=== PATIENT | male | born 1990 | race Caucasian/White ===

== ENCOUNTER 2017-01-02 16:10 | Inpatient (IN) | payer MEDICARE, MEDICAID ==
[~2017-01-02] VITALS: Ht 175.3 cm; Wt 66.6 kg
[2017-01-02] VITALS (7 sets, daily range): BP systolic 96; BP diastolic 57; PULSE 93–106; RESP 18; TEMP 101.7; O2SAT 95–100
[2017-01-02] MEDS ORDERED: IOHEXOL 350 MG/ML 10 ML VIAL (for RAD DIAG) IVCONTRAST ONE (16:11)
[2017-01-02] MEDS ORDERED: PROPOFOL 1000 MG/100 ML INJ 100 ML ONE ×2 (16:17→17:43)
[2017-01-02 16:35] LABS: AUTOMATED NEUTROPHIL # 8.1 TH/MM3 (1.8-7.7); BASOPHIL # 0.1 TH/MM3 (0-0.2); BASOPHIL % 0.8 % (0.0-2.0); EOSINOPHIL # 0.3 TH/MM3 (0-0.4); EOSINOPHIL % 1.7 % (0.0-4.0); HEMATOCRIT 46.2 % (39.0-51.0); LYMPH % 44.2 % (9.0-44.0); MEAN CELL VOLUME 94.3 FL (80.0-100.0); MEAN CORPUSCULAR HEMOGLOBIN 31.5 PG (27.0-34.0); MEAN CORPUSCULAR HGB CONC 33.4 % (32.0-36.0); MONO % 8.2 % (0.0-8.0); NEUT % 45.1 % (16.0-70.0); PLATELET COUNT 257 TH/MM3 (150-450); RED CELL DISTRIBUTION WIDTH 13.4 % (11.6-17.2)
[2017-01-02] MEDS: SODIUM CHLOR 0.9% 1000 ML INJ 1,000 ML IV SCH (16:35)
[2017-01-02 16:37] LABS: HEMO FLAGS AUTO DIFF
[2017-01-02 16:41] LABS: I-STAT POTASSIUM 4.9 MMOL/L (3.5-4.9)
--- NOTE | 2017-01-02 16:41 | RADRPT ---
EXAM DATE/TIME: 01/02/2017 16:02 [facility] COMPARISON: No previous studies available for comparison. INDICATIONS : Trauma alert. Post intubation. MEDICAL HISTORY : None. SURGICAL HISTORY : None. ENCOUNTER: Initial ACUITY: 1 day PAIN SCORE: Non-responsive. LOCATION: chest FINDINGS: A single view of the chest demonstrates bilateral airspace disease. No associated effusions heart siz e is borderline prominent. Endotracheal tube is identified with the tip at the clavicular heads. Osse ous structures are intact. CONCLUSION: 1. Bilateral airspace disease. 2. Endotracheal tube with the tip at the clavicular heads. 3. Heart size is prominent Adriel Trevino MD on January 02, 2017 at 16:38 Board Certified Radiologist. This report was verified electronically.
[2017-01-02] MEDS ORDERED: ONDANSETRON HCL 4 MG/2 ML VIAL IV PRN (16:45)
[2017-01-02] MEDS ORDERED: PROPOFOL 1000 MG/100 ML INJ 100 ML IV PRN ×2 (16:45→19:00)
[2017-01-02] MEDS ORDERED: NALOXONE HCL 0.4 MG/ML AMP IV PUSH PRN (16:45)
[2017-01-02] MEDS ORDERED: SODIUM CHLORIDE 0.9% FLUSH 10 ML FLUSH IV FLUSH PRN (16:45)
[2017-01-02] MEDS ORDERED: Post-op Orders (for Pharmacy) MISC XX ONE (16:45)
[2017-01-02] MEDS ORDERED: ROCURONIUM INJ 50 MG/5 ML VIAL ONE (16:52)
[2017-01-02 17:01] LABS: APTT (PATIENT) 23.3 SEC (24.3-30.1); PROTHROMBIN TIME - PATIENT 11.6 SEC (9.8-11.6)
--- NOTE | 2017-01-02 17:13 | RADRPT ---
EXAM DATE/TIME: 01/02/2017 16:36 [facility] COMPARISON: No previous studies available for comparison. INDICATIONS : Trauma,Hanging RADIATION DOSE: 69.15 CTDIvol (mGy) MEDICAL HISTORY : Unable to obtain SURGICAL HISTORY : Unable to obtain ENCOUNTER: Initial ACUITY: 1 day PAIN SCALE: Non-responsive LOCATION: cranial TECHNIQUE: Multiple contiguous axial images were obtained of the head. Using automated exposure control and adj ustment of the mA and/or kV according to patient size, radiation dose was kept as low as reasonably a chievable to obtain optimal diagnostic quality images. DICOM format image data is available electro nically for review and comparison. FINDINGS: CEREBRUM: The ventricles are normal for age. No evidence of midline shift, mass lesion, hemorrhage or acute in farction. Possible area of diminished attenuation in the left anterior coronal radiata. No extra-axi al fluid collections are seen. POSTERIOR FOSSA: The cerebellum and brainstem are intact. The 4th ventricle is midline. The cerebellopontine angle i s unremarkable. EXTRACRANIAL: The visualized portion of the orbits is intact. SKULL: The calvaria is intact. No evidence of skull fracture. CONCLUSION: 1. Possible area of diminished attenuation in the left anterior mcclellan radiata characteristic of foca l white matter disease. 2. Otherwise, nothing acute. No fracture. Adriel Trevino MD on January 02, 2017 at 17:07 Board Certified Radiologist. This report was verified electronically.
--- NOTE | 2017-01-02 17:23 | RADRPT ---
EXAM DATE/TIME: 01/02/2017 16:48 [facility] COMPARISON: No previous studies available for comparison. INDICATIONS : Trauma,hanging IV CONTRAST: 80 cc Omnipaque 350 (iohexol) IV ; Cumulative dose for multiple exams. RADIATION DOSE: 6.69 CTDIvol (mGy) MEDICAL HISTORY : Unable to obtain SURGICAL HISTORY : Unable to obtain ENCOUNTER: Initial ACUITY: 1 day PAIN SCALE: Non-responsive LOCATION: chest TECHNIQUE: Volumetric scanning of the chest was performed. Using automated exposure control and adjustment of t he mA and/or kV according to patient size, radiation dose was kept as low as reasonably achievable to obtain optimal diagnostic quality images. DICOM format image data is available electronically for review and comparison. Follow-up recommendations for detected pulmonary nodules are based at a minimum on nodule size and pa tient risk factors according to Fleischner Society Guidelines. FINDINGS: LUNGS: Bilateral airspace disease predominantly nodular infiltrates. Right basilar atelectasis. PLEURA: There is no pleural thickening or pleural effusion. MEDIASTINUM: The heart and great vessels demonstrate no acute abnormality. There is no mediastinal or hilar lymph adenopathy. AXILLAE: Within normal limits. No lymphadenopathy. SKELETAL: Probable old healed fracture deformities in the posterior right mid and lower chest MISCELLANEOUS: The visualized upper abdominal organs demonstrate no acute abnormality. CONCLUSION: 1. Bilateral airspace disease with innumerable nodular infiltrates predominantly in a right upper lob e bilateral perihilar and lower lobe distribution. 2. Right basilar atelectasis. 3. Old posterior rib fractures in the right hemithorax Adriel Trevino MD on January 02, 2017 at 17:11 Board Certified Radiologist. This report was verified electronically.
--- NOTE | 2017-01-02 17:37 | RADRPT ---
EXAM DATE/TIME: 01/02/2017 16:44 [facility] COMPARISON: No previous studies available for comparison. INDICATIONS : Trauma Alert- neck pain due to hanging. RADIATION DOSE: ; Reconstructed from previous dataset, no dose MEDICAL HISTORY : Non-responsive. SURGICAL HISTORY : Non-responsive. ENCOUNTER: Initial ACUITY: 1 day PAIN SCALE: Non-responsive LOCATION: Bilateral neck region. TECHNIQUE: Volumetric scanning of the cervical spine was performed. Multiplanar reconstructions in the sagittal, coronal and oblique axial planes were performed. Using automated exposure control and adjustment o f the mA and/or kV according to patient size, radiation dose was kept as low as reasonably achievable to obtain optimal diagnostic quality images. DICOM format image data is available electronically f or review and comparison. FINDINGS: VERTEBRAE: Normal vertebral body height. ALIGNMENT: No evidence of subluxation. C2-C3: The bony spinal canal is normal in size. No evidence of disc bulge or herniation. The neural forami na are bilaterally patent. C3-C4: The bony spinal canal is normal in size. No evidence of disc bulge or herniation. The neural forami na are bilaterally patent. C4-C5: The bony spinal canal is normal in size. No evidence of disc bulge or herniation. The neural forami na are bilaterally patent. C5-C6: The bony spinal canal is normal in size. No evidence of disc bulge or herniation. The neural forami na are bilaterally patent. C6-C7: The bony spinal canal is normal in size. No evidence of disc bulge or herniation. The neural forami na are bilaterally patent. C7-T1: The bony spinal canal is normal in size. No evidence of disc bulge or herniation. The neural forami na are bilaterally patent. CONCLUSION: No fracture. Adriel Trevino MD on January 02, 2017 at 17:34 Board Certified Radiologist. This report was verified electronically.
--- NOTE | 2017-01-02 17:47 | RADRPT ---
EXAM DATE/TIME: 01/02/2017 16:44 [facility] COMPARISON: CT CERVICAL SPINE W/O CONTRAST, January 02, 2017, 16:44. INDICATIONS : Trauma hanging IV CONTRAST: 80 cc Omnipaque 350 (iohexol) IV RADIATION DOSE: 17.06 CTDIvol (mGy) MEDICAL HISTORY : Unable to obtain SURGICAL HISTORY : Unable to obtain ENCOUNTER: Initial ACUITY: 1 day PAIN SCALE: Non-responsive LOCATION: CTA NECK Elevated flow velocities and ICA/CCA ratios have been found to correlate with increased degrees of vessel stenosis, calculated as percentage of diameter relative to a normal segment of distal ICA/CCA. TECHNIQUE: Volumetric scanning was performed using a multirow detector CT scanner. The data was post processed with a variety of visualization algorithms including full-volume maximum intensity projection, multip lanar sliding thin-slab reformation, curved-planar reformation, and surface-rendering techniques. Us ing automated exposure control and adjustment of the mA and/or kV according to patient size, radiatio n dose was kept as low as reasonably achievable to obtain optimal diagnostic quality images. DICOM f ormat image data is available electronically for review and comparison. FINDINGS: AORTIC ARCH: There is a three-vessel origin of the great vessels from the aorta. No evidence of ostial narrowing. RIGHT CAROTID: The common carotid artery is intact. The carotid bulb has a normal configuration without ulceration o r narrowing. The internal carotid artery lumen is smooth without stenosis. The external carotid shiv ry is intact. LEFT CAROTID: The common carotid artery is intact. The carotid bulb has a normal configuration without ulceration or narrowing. The internal carotid artery lumen is smooth without stenosis. The external carotid ar desmond is intact. VERTEBRALS: The left vertebral is small.. CONCLUSION: Negative for dissection. Fernando Nicholas MD FACR on January 02, 2017 at 17:44 Board Certified Radiologist. This report was verified electronically.
--- NOTE | 2017-01-02 17:59 | PD ---
HPI Chief Complaint: hanging Time Seen by Provider: 17:01 Travel History International Travel<30 days: No Contact w/Intl Traveler<30days: No History of Present Illness HPI Is a 26-year-old presents emergency department after reportedly hanging. By EMS report, patient was found by his mom hanging from a ceiling fan with the dog leash. Reportedly family had to cut him down. When he cut down he fell and hit his head on the back of the table. He's been combative and agitated with EMS. History Past Medical History Narrative Medical Unknown Social History Tobacco Use: No (unknown) Allergies-Medications (Allergen,Severity, Reaction): Coded Allergies: No Known Allergies (Unverified , 01/02/17) Review of Systems Except as stated in HPI: all other systems reviewed are Neg Physical Exam Narrative GENERAL: Ill-appearing 29-year-old male, diaphoretic, cyanotic, agitated. SKIN: Clammy and cyanotic. HEAD: Normocephalic. No evidence of trauma. EYES: Pupils equal and round. No scleral icterus. No injection or drainage. ENT: No nasal bleeding or discharge. Mucous membranes pink and moist. NECK: Trachea midline. No definite obvious ligature thrasher or bruising. No crepitus. CARDIOVASCULAR: Regular rate and rhythm. No murmur appreciated. RESPIRATORY: No accessory muscle use. Clear to auscultation. Breath sounds equal bilaterally. GASTROINTESTINAL: Abdomen soft, non-tender, nondistended. Hepatic and splenic margins not palpable. MUSCULOSKELETAL: No obvious deformities. No clubbing. No cyanosis. No edema. NEUROLOGICAL: Agitated and obtunded. Generalized shaking and withdrawing from painful stimuli. Possible extensor posturing. No verbal. Data Data Last Documented VS Vital Signs Date Time Temp Pulse Resp B/P (MAP) Pulse Ox O2 Delivery O2 Flow Rate FiO2 01/02/17 17:15 99 100 Orders Orders Propofol 1000 Mg/100 Ml Inj (Diprivan 10 (01/02/17 16:17) I-Stat Profile (01/02/17 16:16) I-Stat Creatinine (01/02/17 16:16) Complete Blood Count With Diff (01/02/17 16:16) Prothrombin Time / Inr (Pt) (01/02/17 16:16) Act Partial Throm Time (Ptt) (01/02/17 16:16) Type And Screen (01/02/17 16:16) Chest, Single Ap (01/02/17 16:16) Ct Brain W/O Iv Contrast(Rout) (01/02/17 16:16) Ct Thorax/ Chest W Iv Contrast (01/02/17 16:16) Iv Access Insert/Monitor (01/02/17 16:16) Ecg Monitoring (01/02/17 16:16) Oximetry (01/02/17 16:16) Oxygen Administration (01/02/17 16:16) Cta Neck W Iv Contrast W 3d (01/02/17 ) Cta Brain W Iv Contrast W 3d (01/02/17 ) Admit To Inpatient (01/02/17 ) Code Status (01/02/17 16:35) Vital Signs (Adult) Q4H (01/02/17 16:35) Activity Bed Rest (01/02/17 16:35) ^ Orogastric Tube (01/02/17 16:35) Diet Npo (01/02/17 Dinner) Sodium Chlor 0.9% 1000 Ml Inj (Ns 1000 M (01/02/17 16:35) Sodium Chloride 0.9% Flush (Ns Flush) (01/02/17 16:45) Sodium Chloride 0.9% Flush (Ns Flush) (01/02/17 21:00) Ondansetron Inj (Zofran Inj) (01/02/17 16:45) Pantoprazole Inj (Protonix Inj) (01/02/17 16:45) Basic Metabolic Panel (Bmp) (01/03/17 06:00) Hepatic Functional Panel (01/03/17 06:00) Complete Blood Count With Diff (01/03/17 06:00) Consult Kindergarten Teacher Assistant (01/02/17 ) Post-Op Orders (For Pharmacy) (Post-Op O (01/02/17 16:45) Naloxone Inj (Narcan Inj) (01/02/17 16:45) Enoxaparin Inj (Lovenox Inj) (01/02/17 16:45) Scd Bilateral/Knee High EVELYN.QSHIFT (01/02/17 16:35) Inpatient Certification (01/02/17 ) Propofol 1000 Mg/100 Ml Inj (Diprivan 10 (01/02/17 16:45) Neurological Rass Scale Q30MX2,Q2HX4,Q4H (01/02/17 16:35) Eeg Study (01/02/17 ) Echo 2d Comp With Doppler (01/02/17 ) Electrocardiogram (01/02/17 ) Rocuronium Inj (Zemuron Inj) (01/02/17 16:52) (Hub Use Only)Inp Phy Cons/Ref (01/02/17 ) Ct Cerv Spine W/O Contrast (01/02/17 17:07) Iohexol 350 Inj (Omnipaque 350 Inj) (01/02/17 16:11) Admit Order (Ed Use Only) (01/02/17 ) Labs Laboratory Tests Test 01/02/17 16:12 White Blood Count 18.0 TH/MM3 Red Blood Count 4.90 MIL/MM3 Hemoglobin 15.4 GM/DL Bedside Hemoglobin 16.0 G/DL Hematocrit 46.2 % Bedside Hematocrit 47.0 % Mean Corpuscular Volume 94.3 FL Mean Corpuscular Hemoglobin 31.5 PG Mean Corpuscular Hemoglobin Concent 33.4 % Red Cell Distribution Width 13.4 % Platelet Count 257 TH/MM3 Mean Platelet Volume 10.1 FL Neutrophils (%) (Auto) 45.1 % Lymphocytes (%) (Auto) 44.2 % Monocytes (%) (Auto) 8.2 % Eosinophils (%) (Auto) 1.7 % Basophils (%) (Auto) 0.8 % Neutrophils # (Auto) 8.1 TH/MM3 Lymphocytes # (Auto) 8.0 TH/MM3 Monocytes # (Auto) 1.5 TH/MM3 Eosinophils # (Auto) 0.3 TH/MM3 Basophils # (Auto) 0.1 TH/MM3 CBC Comment AUTO DIFF Prothrombin Time 11.6 SEC Prothromb Time International Ratio 1.0 RATIO Activated Partial Thromboplast Time 23.3 SEC Bedside Sodium 143 MMOL/L Bedside Potassium 4.9 MMOL/L Bedside Chloride 104 MMOL/L Bedside Blood Urea Nitrogen 15 MG/DL Bedside Creatinine 1.4 MG/DL Bedside Glucose 173 MG/DL [facility] Medical Decision Making Medical Screen Exam Complete: Yes Emergency Medical Condition: Yes Differential Diagnosis Head injury, hypoxia, neck injury, other Narrative Course Medical decision making This is a young adult male, status post attempted hanging, appears critically ill and agitated. He was intubated for agitation, and hypoxia. It was difficult to obtain any vital signs prior to intubation because of his violent thrashing. Patient was admitted to the ICU to the trauma service. Chest x-ray shows what appears to be pulmonary edema. Procedures Procedure Narrative INTUBATION: The patient was put in optimal position for the procedure. Rapid sequence intubation was initiated by me using 20 milligrams of etomidate IV and 100 milligrams of succinylcholine IV. The patient was intubated with a 8.0 cuffed endotracheal tube. Tube placement was confirmed by visualization of the tube and balloon passing through the cords, capnometry and subsequent chest x- ray. Breath sounds were equal and well aerated bilaterally postintubation. No breath sounds over stomach. Patient tolerated procedure well. Diagnosis Primary Impression: Asphyxiation by hanging Admitting Information Admitting Physician Requests: Admit Usman Duke MD Jan 02, 2017 17:59
[2017-01-02 18:04] LABS: BLOOD GAS BASE EXCESS -3.1 mmol/L (-2-2); BLOOD GAS CARBOXYHEMOGLOBIN 0.8 % (0-4); BLOOD GAS HCO3 22 mmol/L (22-26); BLOOD GAS METHEMOGLOBIN 1.1 % (0-2); BLOOD GAS O2 HGB SATURATION 98 % (90-100); BLOOD GAS OXYGEN CONTENT 20.9 Vol % (12.0-20.0); BLOOD GAS PCO2 44 mmHg (38-42); BLOOD GAS PO2 342 mmHg (61-120); BLOOD GAS TOTAL HGB 14.6 G/DL (12.0-16.0); TEMP CORR TO 98.6
[2017-01-02 18:05] LABS: CRITICAL VALUE NO; DRAW SITE RT RADIAL; FIO2 100 %; NUMBER OF ARTERIAL PUNCTURES 1; OXYGEN DEVICE VENTILATOR; STAT NO; ULNAR PULSE PRESENT
[2017-01-02 18:08] LABS: BASOPHILS 1 % (0-2); EOSINOPHILS 2 % (0-4); MYELOCYTES 2 % (0-0); NEUTROPHIL # MANUAL DIFF 8.1 TH/MM3 (1.8-7.7); POLYS (SEG NEUTROPHILS) 43 % (16-70); WBC DIFF SAMPLE 100
[2017-01-02 18:09] LABS: PLATELET ESTIMATE SMEAR NORMAL (NORMAL); PLATELET MORPHOLOGY CLUMPED (NORMAL)
[2017-01-02 18:10] LABS: SCAN/DIFF FINAL DIFF MANUAL
--- NOTE | 2017-01-02 18:15 | MH ---
cc: GINGER MONTERO DATE OF ADMISSION: 01/02/2017 ADMITTING DIAGNOSIS: Attempted hanging suicide, loss of consciousness, brain hypoxia, pulmonary edema and respiratory failure. HISTORY OF PRESENT DISEASE: This 21-vlad year-old male apparently tried to hang himself at home on a dog leash which he tied to the ceiling fan. Of course the whole thing came crashing down so he never hung himself essentially, but certainly probably had long enough hypoxia to be unconscious. He was brought to our institution as Priority One Trauma Alert. On arrival the patient is on a spinal board with a C-collar in place. He is thrashing around, all four extremities, moving his head left and right, not answering questions and mumbling. PAST MEDICAL HISTORY, PAST SURGICAL HISTORY: Patient was apparently admitted in the past in [place] and he is known to be bipolar not taking medication and being noncompliant. MEDICATIONS: Unknown. ALLERGIES: Unknown. PHYSICAL EXAMINATION: Physical examination reveals 21-vlad year-old male, normocephalic. No trauma to the head. Pupils equally reactive. Extraocular muscles cannot be tested but he is darting back and forth with his eyes. There is some swelling noted in the occiput of the head but no actual laceration. NECK: Neck is examined by removing the portion of the C-collar. I do not see any indentation or bruising from the alleged dog leash that he was hanging on, so the thing must have come down before it could make any dents. CHEST: Bilateral breath sounds. No signs of trauma to the chest. HEART: Regular rhythm. The patient is hemodynamically stable. neck is ABDOMEN: Soft, hypoactive bowel sounds. No signs of trauma to the abdomen. EXTREMITIES: Patient has bilateral femoral, popliteal, dorsalis pedis, posterior tibial pulses. Bilateral brachial, radial, ulnar pulses. No signs of trauma to the extremities. Patient is log-rolled to the back. No signs of trauma to the back. NEUROLOGIC: Neha Coma Scale is about 5. The patient is moving all four extremities, he does not lateralize. No pathologic reflexes. PROTOCOL RESUSCITATION The patient is evaluated, primary/secondary survey, resuscitation, definitive care is carried out. The patient is immediately intubated, ventilated, placed on propofol to be able to do any studies and to allow the patient to keep his upper airway. The patient is then taken to ICU for further care. Critical care time: 45 minutes. Ginger PULLIAM /5:28 PM /5:56 PM PANDA
--- NOTE | 2017-01-02 18:56 | PD.CONS ---
[facility] Service Critical Care Medicine Consult Requested By Dr. Maya Reason for Consult Critical care management following hanging and acute respiratory failure Primary Care Physician Unknown History of Present Illness 26-year-old male with past medical history of depression and prior suicide attempt who presented to [facility] emergency department as a trauma alert following hanging. GCS was 7 prehospital. Blood glucose was 121. He received Ativan 2 mg IV and 900 ML's of NS prehospital. GCS was reportedly 5 upon arrival. He was intubated by Dr. Duke after receiving etomidate 20 mg IV and succinylcholine 100 mg IV. He is on a propofol drip. Workup has included: CT brain - report states possible decreased attenuation in the left anterior mcclellan radiata characteristic of focal white matter disease. CT C-spine -no fracture CTA neck - negative for dissection Chest x-ray - satisfactory endotracheal tube position. Bilateral airspace disease CT chest - right basilar atelectasis. Old posterior rib fracture Review of systems cannot be obtained as patient has altered mental status and is intubated. Family was here earlier however unfortunately did not provide any contact information so I am also unable to obtain past medical history/past surgical history/family history/ social history/medications. Past Family Social History Allergies: Coded Allergies: No Known Allergies (Unverified , 01/02/17) Past Medical History History of prior right ribs fractures Depression Prior suicide attempt (family provided this history to the bedside RN) Past Surgical History Has scar consistent with prior abdominal surgery ?exploratory laparotomy Reported Medications Unable to obtain secondary to patient's clinical condition. Family did not provide contact information and they have left the hospital Family History Unable to obtain secondary to patient's clinical condition. Family did not provide contact information and they have left the hospital Social History Unable to obtain secondary to patient's clinical condition. Family did not provide contact information and they have left the hospital Physical Exam Vital Signs Vital Signs Date Time Temp Pulse Resp B/P (MAP) Pulse Ox O2 Delivery O2 Flow Rate FiO2 01/02/17 18:00 106 01/02/17 17:15 99 100 01/02/17 17:05 100 01/02/17 16:40 100 100 Physical Exam GENERAL: Well-nourished, well-developed patient who is intubated. Restless on propofol, moving about bed. SKIN: Warm and dry. HEAD: Atraumatic. Normocephalic. EYES: Pupils equal and round 6mm and reactive to 4mm bilaterally. No scleral icterus. No injection or drainage. ENT: No nasal bleeding or discharge. Mucous membranes pink and moist. NECK: Trachea midline. No JVD. Ligature madhu left neck. CARDIOVASCULAR: tachycardic, regular, sinus tach on monitor. No murmurs rubs or gallops. RESPIRATORY: Clear to auscultation. Breath sounds equal bilaterally. GASTROINTESTINAL: Abdomen soft, non-tender, nondistended. Midline vertical incision scar abdomen. MUSCULOSKELETAL: Extremities without clubbing, cyanosis, or edema. No obvious deformities. NEUROLOGICAL: Eyes open spontaneously. Moves all extremities spontaneously and localizes. Does not follow commands. Laboratory Laboratory Tests Test 01/02/17 16:12 01/02/17 17:55 White Blood Count 18.0 Red Blood Count 4.90 Hemoglobin 15.4 Bedside Hemoglobin 16.0 Hematocrit 46.2 Bedside Hematocrit 47.0 Mean Corpuscular Volume 94.3 Mean Corpuscular Hemoglobin 31.5 Mean Corpuscular Hemoglobin Concent 33.4 Red Cell Distribution Width 13.4 Platelet Count 257 Mean Platelet Volume 10.1 Neutrophils (%) (Auto) 45.1 Lymphocytes (%) (Auto) 44.2 Monocytes (%) (Auto) 8.2 Eosinophils (%) (Auto) 1.7 Basophils (%) (Auto) 0.8 Neutrophils # (Auto) 8.1 Lymphocytes # (Auto) 8.0 Monocytes # (Auto) 1.5 Eosinophils # (Auto) 0.3 Basophils # (Auto) 0.1 CBC Comment AUTO DIFF Differential Total Cells Counted 100 Neutrophils % (Manual) 43 Lymphocytes % 47 Monocytes % 5 Eosinophils % 2 Basophils % 1 Neutrophils # (Manual) 8.1 Myelocytes 2 Differential Comment FINAL DIFF MANUAL Atypical Lymphocytes Platelet Estimate NORMAL Platelet Morphology Comment CLUMPED Prothrombin Time 11.6 Prothromb Time International Ratio 1.0 Activated Partial Thromboplast Time 23.3 Bedside Sodium 143 Bedside Potassium 4.9 Bedside Chloride 104 Bedside Blood Urea Nitrogen 15 Bedside Creatinine 1.4 Bedside Glucose 173 Blood Gas Puncture Site RT RADIAL Blood Gas Patient Temperature 98.6 Blood Gas HCO3 22 Blood Gas Base Excess -3.1 Blood Gas Oxygen Saturation 98 Arterial Blood pH 7.32 Arterial Blood Partial Pressure CO2 44 Arterial Blood Partial Pressure O2 342 Arterial Blood Oxygen Content 20.9 Arterial Blood Carboxyhemoglobin 0.8 Arterial Blood Methemoglobin 1.1 Blood Gas Hemoglobin 14.6 Oxygen Delivery Device VENTILATOR Blood Gas Ventilator Setting SEE COMMENT Blood Gas Inspired Oxygen 100 Result Diagram: 01/02/17 1612 Assessment and Plan Problem List: (1) Hanging ICD Code: T71.164A - Asphyxiation due to hanging, undetermined, initial encounter (2) Suicidal ideation ICD Code: R45.851 - Suicidal ideations Status: Chronic (3) Depression ICD Code: F32.9 - Major depressive disorder, single episode, unspecified Status: Chronic (4) Acute respiratory failure ICD Code: J96.00 - Acute respiratory failure, unspecified whether with hypoxia or hypercapnia (5) Pulmonary edema, noncardiac ICD Code: J81.1 - Chronic pulmonary edema Status: Acute (6) Leukocytosis ICD Code: D72.829 - Elevated white blood cell count, unspecified (7) Hyperglycemia ICD Code: R73.9 - Hyperglycemia, unspecified Status: Acute Assessment and Plan NEURO: Hanging Suicidal tendencies Depression CT brain - report states possible decreased attenuation in the left anterior mcclellan radiata characteristic of focal white matter disease. CT C-spine -no fracture CTA neck - negative for dissection Propofol for sedation. Patient is localizing. Agitated on propofol so fentanyl added overnight for analgosedation. Patient will need to be placed under Agosto act when he is extubated and psych consult when he is able to communicate appropriately. RESP: Acute respiratory failure Old right posterior rib fracture On mechanical ventilation. Ventilator bundle. CPAP trial in am. Bilateral pulmonary opacities Likely negative pressure pulmonary edema that will be self-limiting. Repeat CXR in am. CV: Sinus tachycardia Secondary to agitation and pain. Improved with fentanyl GI: Place OG tube to low intermittent wall suction. Will initiate enteral feeds if not able to extubate tomorrow. FEN/RENAL: Morales in place. Monitor intake and output. Monitor electrolytes. Replace electrolytes as indicated per ICU electrolyte replacement protocol. ID: Leukocytosis Bilateral pulmonary opacities may be secondary to negative pressure pulmonary edema. May have component of aspiration pneumonitis. Will hold off on abx at this time and monitor for signs and symptoms of infection, HEME: No acute hematologic issues. CBC in a.m. ENDO: Acute hyperglycemia, likely stress-induced secondary to trauma Monitor bedside glucose and initiate low-dose insulin sliding scale every 6 hours as indicated. PROPH: Lovenox 40 mg subcutaneous daily for DVT prophylaxis. Protonix 40 mg IV daily for stress ulcer prophylaxis. ACCESS: Peripheral IV providing adequate access at this time Level 3 Consult Problem Qualifiers (1) Hanging: Qualified Codes: T71.164A - Asphyxiation due to hanging, undetermined, initial encounter Anamaria Garcia MD Jan 02, 2017 18:56
[2017-01-02] MEDS ORDERED: fentaNYL DRIP 250 ML IV PRN (19:00)
--- NOTE | 2017-01-02 19:13 | RADRPT ---
EXAM DATE/TIME: 01/02/2017 16:44 [facility] COMPARISON: No previous studies available for comparison. INDICATIONS : Trauma hanging. IV CONTRAST: 80 cc Omnipaque 350 (iohexol) IV ; Cumulative dose for multiple exams. RADIATION DOSE: 17.06 CTDIvol (mGy) MEDICAL HISTORY : Unable to obtain SURGICAL HISTORY : Unable to obtain ENCOUNTER: Initial ACUITY: 1 day PAIN SCALE: Non-responsive LOCATION: CTA HEAD TECHNIQUE: Volumetric scanning was performed using a multi-row detector CT scanner. The data was post processed with a variety of visualization algorithms including full volume maximum intensity projection, multi -planar sliding thin slab reformation, curved planar reformation, and surface rendering techniques. Using automated exposure control and adjustment of the mA and/or kV according to patient size, radiat ion dose was kept as low as reasonably achievable to obtain optimal diagnostic quality images. DICO M format image data is available electronically for review and comparison. FINDINGS: There is excellent visualization of the major intracranial arteries out to the second-order branch ve ssels. There is no evidence for aneurysm, vessel truncation or stenosis, and no evidence for vascula r malformation. There is a patent left posterior communicating artery. CONCLUSION: 1. No significant stenosis, occlusion or aneurysm. 2. Patent left posterior communicating artery. Alexi Bergman MD on January 02, 2017 at 19:08 Board Certified Radiologist. This report was verified electronically.
[2017-01-02] MEDS ORDERED: DEXTROSE 50% IN WATER 50 ML VIAL(D50) IV PUSH PRN (19:30)
[2017-01-02] MEDS ORDERED: fentaNYL 2,500 MCG/NS 250 ML IV PRN (19:30)
[2017-01-02] MEDS ORDERED: GLUCAGON 1 MG/ML VIAL OTHER PRN (19:30)
[2017-01-02] MEDS: PROPOFOL 1000 MG/100 ML IV PRN (20:00)
[2017-01-02] MEDS: INSULIN ASPART SUPPLEMENTAL SCALE SQ SCH (20:00)
[2017-01-02] MEDS: PANTOPRAZOLE SODIUM 40 MG VIAL IV SCH (20:15)
[2017-01-02] MEDS: ENOXAPARIN SODIUM 40 MG/0.4 ML SYRINGE SQ SCH (20:15)
[2017-01-02] MEDS: SODIUM CHLORIDE 0.9% FLUSH 10 ML FLUSH IV FLUSH SCH (20:31)
[2017-01-02 21:59] LABS: INDIRECT BILIRUBIN 0.3 MG/DL (0.0-0.8); TOTAL BILIRUBIN ADULT 0.5 MG/DL (0.2-1.0)
[2017-01-03] VITALS (18 sets, daily range): BP systolic 73–112; BP diastolic 39–69; PULSE 78–107; RESP 16–23; TEMP 99–100.8; O2SAT 83–100
[2017-01-03] MEDS: PROPOFOL 1000 MG/100 ML IV PRN ×2 (00:52→07:01)
[2017-01-03] MEDS: SODIUM CHLOR 0.9% 1000 ML INJ 1,000 ML IV SCH (01:06)
[2017-01-03] MEDS: INSULIN ASPART SUPPLEMENTAL SCALE SQ SCH ×4 (02:00→20:00)
[2017-01-03] MEDS ORDERED: ACETAMINOPHEN 650 MG/20.3 ML UDC OG-TUBE PRN (04:45)
[2017-01-03 05:19] LABS: AUTOMATED NEUTROPHIL # 11.3 TH/MM3 (1.8-7.7); BASOPHIL % 0.3 % (0.0-2.0); EOSINOPHIL # 0.1 TH/MM3 (0-0.4); EOSINOPHIL % 0.5 % (0.0-4.0); HEMATOCRIT 46.1 % (39.0-51.0); HEMO FLAGS DIFF FINAL; LYMPH % 19.7 % (9.0-44.0); LYMPHOCYTE # 3.1 TH/MM3 (1.0-4.8); MEAN CELL VOLUME 92.5 FL (80.0-100.0); MEAN CORPUSCULAR HGB CONC 32.4 % (32.0-36.0); MONO % 8.6 % (0.0-8.0); NEUT % 70.9 % (16.0-70.0); PLATELET COUNT 165 TH/MM3 (150-450); RED BLOOD COUNT 4.98 MIL/MM3 (4.50-5.90); RED CELL DISTRIBUTION WIDTH 13.3 % (11.6-17.2); WHITE BLOOD COUNT 15.9 TH/MM3 (4.0-11.0)
--- NOTE | 2017-01-03 05:23 | RADRPT ---
EXAM DATE/TIME: 01/03/2017 04:31 [facility] COMPARISON: CHEST SINGLE AP, January 02, 2017, 16:02. INDICATIONS : Respiratory failure. MEDICAL HISTORY : None. SURGICAL HISTORY : None. ENCOUNTER: Initial ACUITY: 1 day PAIN SCORE: Non-responsive. LOCATION: Bilateral chest FINDINGS: 2 portable frontal views of the chest show an endotracheal tube with the tip 4 cm proximal to the car francisco. Nasogastric tube tip in the antrum of the stomach. Some improvement in the bilateral pulmonary i nfiltrates. No effusions. No pneumothorax. Heart is normal in size. Bony structures are unremarkable. CONCLUSION: Some improvement in the bilateral pulmonary infiltrates. Juarez Solis Jr., MD on January 03, 2017 at 5:21 Board Certified Radiologist. This report was verified electronically.
[2017-01-03 05:53] LABS: BICARBONATE 24.5 MEQ/L (21.0-32.0); INDIRECT BILIRUBIN 0.6 MG/DL (0.0-0.8); POTASSIUM 4.1 MEQ/L (3.5-5.1); TOTAL BILIRUBIN ADULT 0.7 MG/DL (0.2-1.0)
--- NOTE | 2017-01-03 08:03 | HHI.CCPN ---
Subjective Remarks/Hospital Course 26-year-old male with past medical history of depression and prior suicide attempt who presented to [facility] emergency department as a trauma alert following hanging. GCS was 7 prehospital. Blood glucose was 121. He received Ativan 2 mg IV and 900 ML's of NS prehospital. GCS was reportedly 5 upon arrival. He was intubated by Dr. Duke after receiving etomidate 20 mg IV and succinylcholine 100 mg IV. He is on a propofol drip. Workup has included: CT brain - report states possible decreased attenuation in the left anterior mcclellan radiata characteristic of focal white matter disease. CT C-spine -no fracture CTA neck - negative for dissection Chest x-ray - satisfactory endotracheal tube position. Bilateral airspace disease CT chest - right basilar atelectasis. Old posterior rib fracture Review of systems cannot be obtained as patient has altered mental status and is intubated. Family was here earlier however unfortunately did not provide any contact information so I am also unable to obtain past medical history/past surgical history/family history/ social history/medications. SUBJ 01/03: Remains intubated sedated but purposefully moving all extremities. Gets agitated on sedation hold. We'll proceed with spontaneous breathing trial and possible extubation. Also consult pulmonology for extensive nodular pulmonary infiltrates. Start Unasyn for aspiration pneumonia Objective Vital Signs Date Time Temp Pulse Resp B/P (MAP) Pulse Ox O2 Delivery O2 Flow Rate FiO2 01/03/17 07:50 Nasal Cannula 3 01/03/17 06:21 88 01/03/17 04:34 100 60 01/03/17 04:00 100.8 16 93/53 (66) Intake and Output 01/03/17 01/03/17 01/04/17 08:00 16:00 00:00 Intake Total 1843 ml Output Total 800 ml Balance 1043 ml Result Diagram: 01/03/17 0500 01/03/17 0500 Other Results Laboratory Tests Test 01/02/17 17:55 Blood Gas Puncture Site RT RADIAL Blood Gas Patient Temperature 98.6 Blood Gas HCO3 22 mmol/L (22-26) Blood Gas Base Excess -3.1 mmol/L (-2-2) Blood Gas Oxygen Saturation 98 % (90-100) Arterial Blood pH 7.32 (7.380-7.420) Arterial Blood Partial Pressure CO2 44 mmHg (38-42) Arterial Blood Partial Pressure O2 342 mmHg (61-120) Arterial Blood Oxygen Content 20.9 Vol % (12.0-20.0) Arterial Blood Carboxyhemoglobin 0.8 % (0-4) Arterial Blood Methemoglobin 1.1 % (0-2) Blood Gas Hemoglobin 14.6 G/DL (12.0-16.0) Oxygen Delivery Device VENTILATOR Blood Gas Ventilator Setting SEE COMMENT Blood Gas Inspired Oxygen 100 % Objective Remarks GENERAL: Well-nourished, well-developed patient in no apparent distress, intubated sedated. SKIN: Warm and dry. HEAD: Atraumatic. Normocephalic. EYES: Pupils equal and round. No scleral icterus. No injection or drainage. ENT: No nasal bleeding or discharge. Mucous membranes pink and moist. NECK: Trachea midline. No JVD. C collar in place CARDIOVASCULAR: Regular rate and rhythm. No murmurs rubs or gallops. RESPIRATORY: No accessory muscle use. Clear to auscultation anteriorly. Breath sounds equal bilaterally. GASTROINTESTINAL: Abdomen soft, non-tender, nondistended. Hepatic and splenic margins not palpable. MUSCULOSKELETAL: Extremities without clubbing, cyanosis, or edema. No obvious deformities. NEUROLOGICAL: Wakes up easily. No obvious cranial nerve deficits. Motor grossly within normal limits. A/P Assessment and Plan NEURO: Hanging Suicidal tendencies Depression CT brain - report states possible decreased attenuation in the left anterior mcclellan radiata characteristic of focal white matter disease. Clinical exam shows no major evidence of anoxic brain injury CT C-spine -no fracture CTA neck - negative for dissection Hold all sedation for extubation Patient will need to be placed under Agosto act when he is extubated. Psych consult at RESP: Acute hypoxemic respiratory failure Extensive bilateral pulmonary nodules Aspiration pneumonia Old right posterior rib fracture - PSYCHIATRIC AC. Start weaning trials for possible extubation - Start Unasyn for aspiration pneumonitis follow-up on sputum culture - Bilateral extensive pulmonary nodules consult pulmonology - Await sputum culture check in his level CV: Sinus tachycardia - Discontinue all IV fluids and give IV Lasix 40 mg 1 due to hypoxia GI: - OG tube to low intermittent wall suction FEN/RENAL: - Morales in place. Monitor intake and output. Monitor electrolytes. Replace I' s as indicated per ICU electrolyte replacement protocol. ID: Leukocytosis Aspiration pneumonitis - Start empiric Unasyn. Follow-up on blood and sputum culture HEME: - No acute hematologic issues. CBC in a.m. ENDO: Acute hyperglycemia, likely stress-induced secondary to trauma Monitor bedside glucose and initiate low-dose insulin sliding scale every 6 hours as indicated. PROPH: - Lovenox 40 mg subcutaneous daily for DVT prophylaxis. Protonix 40 mg IV daily for stress ulcer prophylaxis. ACCESS: Peripheral IV providing adequate access at this time CCT 30 MIN Stephen Michaels MD Jan 03, 2017 08:02
[2017-01-03] MEDS ORDERED: FUROSEMIDE 40 MG/4 ML VIAL IV PUSH ONE (08:15)
[2017-01-03] MEDS: SODIUM CHLORIDE 0.9% FLUSH 10 ML FLUSH IV FLUSH SCH ×2 (08:37→20:36)
[2017-01-03] MEDS ORDERED: AMPICILLIN-SULBACTAM INJ 3 GM in SODIUM CHLORIDE 0.9% INJ 100 ML IV SCH (09:00)
[2017-01-03] MEDS: DOCUSATE SODIUM 50 MG/SENNA 8.6 MG TAB PO SCH ×2 (09:00→20:37)
[2017-01-03] MEDS ORDERED: HALOPERIDOL LACTATE 5 MG/ML AMP IM PRN (10:00)
[2017-01-03] MEDS ORDERED: ZIPRASIDONE MESYLATE 20 MG VIAL IM PRN (10:15)
[2017-01-03] MEDS ORDERED: SENN1TAB PO (10:17)
[2017-01-03] MEDS ORDERED: ZIPR20P IM (10:17)
[2017-01-03] MEDS ORDERED: QUET1TAB8 PO (10:17)
[2017-01-03] MEDS ORDERED: HALO5P IM (10:17)
[2017-01-03] MEDS ORDERED: MAGN400S PO (10:17)
[2017-01-03] MEDS ORDERED: TYLE325T PO (10:19)
--- NOTE | 2017-01-03 12:18 | HHI.DS ---
Discharge Summary Admission Date Jan 02, 2017 at 17:27 Discharge Date: Jan 03, 2017 Admitting Diagnosis Hanging (1) Pulmonary edema, noncardiac ICD Codes: J81.1 - Chronic pulmonary edema Status: Acute (2) Acute respiratory failure ICD Codes: J96.00 - Acute respiratory failure, unspecified whether with hypoxia or hypercapnia Diagnosis: Principal (3) Depression ICD Codes: F32.9 - Major depressive disorder, single episode, unspecified Diagnosis: Principal Status: Chronic (4) Suicidal ideation ICD Codes: R45.851 - Suicidal ideations Diagnosis: Principal Status: Chronic (5) Hanging ICD Codes: T71.164A - Asphyxiation due to hanging, undetermined, initial encounter Diagnosis: Principal (6) Asphyxiation by hanging ICD Codes: T71.161A - Asphyxiation due to hanging, accidental, initial encounter Diagnosis: Principal Status: Acute Brief History Suicide attempt. hanging. CBC/BMP: 01/03/17 0500 01/03/17 0500 Significant Findings Laboratory Tests Test 01/02/17 16:12 01/02/17 16:13 01/02/17 17:55 01/03/17 05:00 White Blood Count 18.0 TH/MM3 (4.0-11.0) 15.9 TH/MM3 (4.0-11.0) Lymphocytes (%) (Auto) 44.2 % (9.0-44.0) Monocytes (%) (Auto) 8.2 % (0.0-8.0) 8.6 % (0.0-8.0) Neutrophils # (Auto) 8.1 TH/MM3 (1.8-7.7) 11.3 TH/MM3 (1.8-7.7) Lymphocytes # (Auto) 8.0 TH/MM3 (1.0-4.8) Monocytes # (Auto) 1.5 TH/MM3 (0-0.9) 1.4 TH/MM3 (0-0.9) Lymphocytes % 47 % (9-44) Neutrophils # (Manual) 8.1 TH/MM3 (1.8-7.7) Myelocytes 2 % (0-0) Platelet Morphology Comment CLUMPED (NORMAL) Activated Partial Thromboplast Time 23.3 SEC (24.3-30.1) Bedside Creatinine 1.4 MG/DL (0.8-1.3) Bedside Glucose 173 MG/DL (60-95) Blood Gas Base Excess -3.1 mmol/L (-2-2) Arterial Blood pH 7.32 (7.380-7.420) Arterial Blood Partial Pressure CO2 44 mmHg (38-42) Arterial Blood Partial Pressure O2 342 mmHg (61-120) Arterial Blood Oxygen Content 20.9 Vol % (12.0-20.0) Neutrophils (%) (Auto) 70.9 % (16.0-70.0) Random Glucose 70 MG/DL (74-106) Total Protein 6.2 GM/DL (6.4-8.2) Calcium Level 8.2 MG/DL (8.5-10.1) Aspartate Amino Transf (AST/SGOT) 64 U/L (15-37) Chloride Level 110 MEQ/L (98-107) Estimat Glomerular Filtration Rate 80 ML/MIN (>89) Imaging Last Impressions Chest X-Ray 01/03/17 0600 Signed Impressions: Service Date/Time: December 04:31 - CONCLUSION: Some improvement in the bilateral pulmonary infiltrates. Juarez Solis Jr., MD Cervical Spine CT 01/02/17 1707 Signed Impressions: Service Date/Time: Monday, January 02, 2017 16:44 - CONCLUSION: No fracture. Adriel Trevino MD Head CT 01/02/17 161 Signed Impressions: Service Date/Time: Monday, January 02, 2017 16:36 - CONCLUSION: 1. Possible area of diminished attenuation in the left anterior mcclellan radiata characteristic of focal white matter disease. 2. Otherwise, nothing acute. No fracture. Adriel Trevino MD Chest CT 01/02/17 161 Signed Impressions: Service Date/Time: Monday, January 02, 2017 16:48 - CONCLUSION: 1. Bilateral airspace disease with innumerable nodular infiltrates predominantly in a right upper lobe bilateral perihilar and lower lobe distribution. 2. Right basilar atelectasis. 3. Old posterior rib fractures in the right hemithorax Adriel Trevino MD Neck CTA 01/02/17 0000 Signed Impressions: Service Date/Time: Monday, January 02, 2017 16:44 - CONCLUSION: Negative for dissection. Fernando Nicholas MD FACR Head CTA 01/02/17 0000 Signed Impressions: Service Date/Time: Monday, January 02, 2017 16:44 - CONCLUSION: 1. No significant stenosis, occlusion or aneurysm. 2. Patent left posterior communicating artery. Alexi Bergman MD PE at Discharge GENERAL: This is a 26-year-old male lying in bed. No distress noted. SKIN: Warm and dry. HEAD: Atraumatic. Normocephalic. EYES: PERRLA ENT: No nasal bleeding or discharge. Mucous membranes pink and moist. NECK: Trachea midline. No JVD. CARDIOVASCULAR: Regular rate and rhythm. RESPIRATORY: No accessory muscle use. Lungs are clear to auscultation. Breath sounds equal bilaterally. No distress or dyspnea. GASTROINTESTINAL: BS + x 4 quads. Abdomen soft, non-tender, nondistended. MUSCULOSKELETAL: Extremities without cyanosis, or edema. + peripheral pulses x 4 extremities. Warm with good capillary refill and sensation. MAEW. NEUROLOGICAL: Awake and alert. Normal speech and pattern. Hospital Course [place]: This is a 26-year-old male who attempted suicide via hanging. He was found hanging from a fan by a dog leash. When he was cut down, he hit his head. He was combative and agitated. He was intubated for airway protection and to facilitate trauma scaning. The patient was weaned and extubated from the ventilator the next morning. He was placed on a Agosto act. Sitter at bedside for safety. Sats equal 90% on 6 L. Having difficulty keeping O2 on patient. Patient is requesting to be a DNR. The patient is immediately evaluated by psychiatrist upon extubation, and he requests transfer to inpatient psychiatric floor for further evaluation and treatment. INJURIES: Respiratory failure/pulmonary edema Hypoxia PMHx: Depression. Prior suicide attempt. Consults: [facility]. Psychiatry. Hospitalists. Case management. Agosto act. Sitter at bedside for patient safety and to prevent further self- harm. The patient is now tolerating a po diet. Eating and drinking well. Pain is being managed well with PO pain medications, and all appropriate medications will continue while patient continues care on the inpatient psychiatric floor. We have recommended to patient to continue with stool softeners while taking narcotic pain medications to prevent constipation. Pt has been participating in PT and OT while admitted at [facility] and has been ambulating with their assistance and independently . All follow up appointments have been provided and discussed with the patient. It is recommended that the patient keeps all his follow up appointments for continued recovery. Therefore, the patient is stable to be safely discharged to inpatient psychiatric floor from a trauma surgery standpoint for continued psychiatric care. Thank you for allowing us to participate in his care. We wish Charles the best in his recovery. Respiratory failure/pulmonary edema Hypoxia Depression s/p suicide attempt via hanging CCM consulted and assisting in management and care 01/03: Intubated in ED 01/04: Extubated in ICU Aggressive pulmonary toileting O2 as needed Patient placed under Agosto act Sitter at bedside Psychiatrist consulted and assisting in management and care Psychiatrist recommends inpatient psychiatric treatment Seroquel 100 mg every 8 hours Haldol 4 mg every 6 hours for moderate agitation Geodon 10 mg every 12 hours for severe agitation Pt Condition on Discharge: Stable Discharge Disposition: Disc to Psych Care Fac Discharge Instructions DIET: Follow Instructions for: As Tolerated, No Restrictions Activities you can perform: Regular-No Restrictions Activities to Avoid: Driving for 24 hrs, Lifting/Bending, Strenuous Activity Zenia Franklin Jan 03, 2017 12:18
--- NOTE | 2017-01-03 12:24 | ECHRPT ---
Indication: hanging hypoxia CONCLUSIONS Moderate to severely dilated left ventricle. Wall thickness is normal. The left ventricular systolic function is severely reduced with an estimated ejection fraction in th e range of 20-25%. There is global left ventricular dysfunction with best preserved function at lateral basal segment. There is trace tricuspid valve regurgitation. The estimated pulmonary arterial pressure is 27 mmHg. The pulmonary valve is not well visualized. BP: / HR: Rhythm: Sinus MEASUREMENTS (Male / Female) Normal Values Technical Quality:Good 2D ECHO LV Diastolic Diameter PLAX 5.3 cm 4.2 - 5.9 / 3.9 - 5.3 cm LV Systolic Diameter PLAX 4.4 cm IVS Diastolic Thickness 0.9 cm 0.6 - 1.0 / 0.6 - 0.9 cm LVPW Diastolic Thickness 0.6 cm 0.6 - 1.0 / 0.6 - 0.9 cm LV Relative Wall Thickness 0.3 RV Internal Dim ED PLAX 2.0 cm LA Systolic Diameter LX 3.3 cm 3.0 - 4.0 / 2.7 - 3.8 cm DOPPLER Mitral E Point Velocity 77.0 cm/s Mitral A Point Velocity 59.2 cm/s Mitral E to A Ratio 1.3 TR Peak Velocity 258.0 cm/s TR Peak Gradient 26.6 mmHg FINDINGS LEFT VENTRICLE Moderate to severely dilated left ventricle. Wall thickness is normal. The left ventricular systolic function is severely reduced with an estimated ejection fraction in th e range of 20-25%. There is global left ventricular dysfunction with best preserved function at lateral basal segment. RIGHT VENTRICLE Normal right ventricular size and systolic function. LEFT ATRIUM The left atrial size is normal. RIGHT ATRIUM The right atrial size is normal. ATRIAL SEPTUM Normal atrial septal thickness without atrial level shunting by limited color doppler interrogation. AORTA The aortic root and proximal ascending aorta are normal in size on limited imaging. MITRAL VALVE Structurally normal mitral valve. No mitral valve stenosis or regurgitation. AORTIC VALVE Trileaflet aortic valve. No aortic valve stenosis or regurgitation. TRICUSPID VALVE There is trace tricuspid valve regurgitation. The estimated pulmonary arterial pressure is 27 mmHg. PULMONARY VALVE The pulmonary valve is not well visualized. VESSELS The inferior vena cava is normal in size. PERICARDIUM No pericardial effusion. Usman Guevara MD, FACC (Electronically Signed) Final Date:03 January 2017 12:24
[2017-01-03] MEDS: AMPICILLIN/SULBAC 3 GM/NS 100 ML IV SCH ×4 (12:51→18:00)
--- NOTE | 2017-01-03 13:50 | PD.PSY.CON ---
Provisional Diagnosis Admission Date Jan 02, 2017 at 17:27 Jackson I. Bipolar disorder, alcohol use disorder Jackson II. Deferred Jackson III. No significant medical history History of Present Illness Service Psychiatry Consult Requested By Reason for Consult Recent suicidal attempt Primary Care Physician Unknown HPI The patient is a 26-year-old man, homeless, unemployed, supported by [facility], with psychiatric history bipolar disorder, alcohol use disorder, multiple psychiatric hospitalizations, history of noncompliance with medications, multiple suicidal attempts, his last suicidal attempt was in June 28, 2014, patient jumped of [employer] building in [place], what resulted in several fractures a lengthy hospitalization in ICU, this information was confirmed by [facility] psychiatrist in [facility]. At that moment patient was in a mixed manic/depressive status, was is paralyzed and Depakote 750 mg 3 times a day and Seroquel 150 mg at bedtime. He doesn't have any significant medical history, first time in [place], who presents emergency department after reportedly hanging. By EMS report, patient was found by his mom hanging from a ceiling fan with the dog leash. Reportedly family had to cut him down. When he cut down he fell and hit his head on the back of the table. Patient was very combative and agitated in the ER, was sedated and intubated. Consulted to psychiatry to assess manic behavior and suicidal attempt. On psychiatric evaluation today patient is found in his bed, very oppositional, irritable, with elevated mood. He states that he doesn't need to stay with any psychiatrist. He says that he is not here for psychiatric reason. He denies that he tried to commit suicide. She claims that he doesn't remember what happened taking in the last hours. He denies the use of drugs or alcohol. Patient has a rapid speech, at times disorganized and tangential, but redirectable. He also has a very labile mood crying often and yelling at nurses and at me.I contacted Dr. Fregoso in [facility], who told me that the patient has several previous suicidal attempts, some of them very lethal. Apparently patient has poor adherence to psychotropics. He has multiple psychiatric hospitalizations. One of his hospitalizations was due to a suicidal attempt by jumping off a building resulting in multiple traumatic lesions and lengthy hospitalization. Review of Systems Constitutional: DENIES: Diaphoretic episodes, Fatigue, Fever, Weight gain, Weight loss, Chills, Dizziness, Change in appetite, Night Sweats Endocrine: DENIES: Heat/cold intolerance, Polydipsia, Polyuria, Polyphagia Eyes: DENIES: Blurred vision, Diplopia, Eye inflammation, Eye pain, Vision loss , Photosensitivity, Double Vision Ears, nose, mouth, throat: DENIES: Tinnitus, Hearing loss, Vertigo, Nasal discharge, Oral lesions, Throat pain, Hoarseness, Ear Pain, Running Nose, Epistaxis, Sinus Pain, Toothache, Odynophagia Respiratory: DENIES: Apneas, Cough, Snoring, Wheezing, Hemoptysis, Sputum production, Shortness of breath Gastrointestinal: DENIES: Abdominal pain, Black stools, Bloody stools, Constipation, Diarrhea, Nausea, Vomiting, Difficulty Swallowing, Anorexia Genitourinary: DENIES: Sexual dysfunction, Urinary frequency, Urinary incontinence, Urgency, Hematuria, Dysuria, Nocturia, Penile Discharge, Testicular Pain, Testicular Swelling Integumentary: DENIES: Abnormal pigmentation, Nail changes, Pruritus, Rash Hematologic/lymphatic: DENIES: Bruising, Lymphadenopathy Immunologic/allergic: DENIES: Eczema, Urticaria Neurologic: DENIES: Abnormal gait, Headache, Localized weakness, Paresthesias, Seizures, Speech Problems, Tremor, Poor Balance Psychiatric: COMPLAINS OF: Agitation, DENIES: Anxiety, Confusion, Mood changes , Depression, Hallucinations, Suicidal Ideation, Homicidal Ideation, Delusions Past Family Social History Coded Allergies: No Known Allergies (Unverified , 01/02/17) Current Medications Medications (Trade) Dose Ordered Sig/Mason Route Start Time Stop Time Status Last Admin (NS Flush) 2 ml UNSCH PRN IV FLUSH 01/02/17 16:45 (NS Flush) 2 ml BID IV FLUSH 01/02/17 21:00 01/03/17 08:37 (Zofran Inj) 4 mg Q6H PRN IV 01/02/17 16:45 (Protonix Inj) 40 mg Q24H IV 01/02/17 18:00 01/02/17 20:15 (Narcan Inj) 0.4 mg UNSCH PRN IV PUSH 01/02/17 16:45 (Lovenox Inj) 40 mg Q24H SQ 01/02/17 18:00 01/02/17 20:15 (D50w (Vial) Inj) 50 ml UNSCH PRN IV PUSH 01/02/17 19:30 (Glucagon Inj) 1 mg UNSCH PRN OTHER 01/02/17 19:30 (NovoLOG SUPPLEMENTAL SCALE) 1 Q6H SQ 01/02/17 20:00 (Tylenol 650 Mg/ 20 ml Liq) 650 mg Q4H PRN OG-TUBE 01/03/17 04:45 01/03/17 06:06 (Milk Of Magnesia Liq) 30 ml HS PO 01/03/17 21:00 (Chiquita-Colace) 2 tab BID PO 01/03/17 09:00 (SEROquel) 100 mg Q8HR PO 01/03/17 14:00 (Haldol Inj) 4 mg Q6H PRN IM 01/03/17 10:00 (Geodon Inj) 10 mg Q12HR PRN IM 01/03/17 10:15 Ampicillin Sodium/ Sulbactam Sodium 3 gm/Sodium Chloride 100 ml @ 200 mls/hr Q6H IV 01/03/17 13:00 01/03/17 12:51 Family History Patient denies family psychiatric history Social History Patient was born and raised in [place], his self-report to be homeless, single, unemployed, on SSI, his highest level of education is high school Patient's Strengths (min. 2) Verbal communication Physical Exam No tremors, no EPS, no stiffness present Vital Signs Vital Signs Date Time Temp Pulse Resp B/P (MAP) Pulse Ox O2 Delivery O2 Flow Rate FiO2 01/03/17 10:30 95 Nasal Cannula 6.00 01/03/17 10:00 104 01/03/17 08:00 99.1 21 106/69 (81) 01/03/17 07:00 60 I/O 01/03/17 01/03/17 01/04/17 08:00 16:00 00:00 Intake Total 2157 ml 120 ml Output Total 800 ml 300 ml Balance 1357 ml -180 ml Lab Results Test 01/02/17 16:12 01/02/17 16:13 01/02/17 17:55 01/03/17 05:00 White Blood Count 18.0 TH/MM3 15.9 TH/MM3 Red Blood Count 4.90 MIL/MM3 4.98 MIL/MM3 Hemoglobin 15.4 GM/DL 14.9 GM/DL Bedside Hemoglobin 16.0 G/DL Hematocrit 46.2 % 46.1 % Bedside Hematocrit 47.0 % Mean Corpuscular Volume 94.3 FL 92.5 FL Mean Corpuscular Hemoglobin 31.5 PG 30.0 PG Mean Corpuscular Hemoglobin Concent 33.4 % 32.4 % Red Cell Distribution Width 13.4 % 13.3 % Platelet Count 257 TH/MM3 165 TH/MM3 Mean Platelet Volume 10.1 FL 9.4 FL Neutrophils (%) (Auto) 45.1 % 70.9 % Lymphocytes (%) (Auto) 44.2 % 19.7 % Monocytes (%) (Auto) 8.2 % 8.6 % Eosinophils (%) (Auto) 1.7 % 0.5 % Basophils (%) (Auto) 0.8 % 0.3 % Neutrophils # (Auto) 8.1 TH/MM3 11.3 TH/MM3 Lymphocytes # (Auto) 8.0 TH/MM3 3.1 TH/MM3 Monocytes # (Auto) 1.5 TH/MM3 1.4 TH/MM3 Eosinophils # (Auto) 0.3 TH/MM3 0.1 TH/MM3 Basophils # (Auto) 0.1 TH/MM3 0.0 TH/MM3 CBC Comment AUTO DIFF DIFF FINAL Differential Total Cells Counted 100 Neutrophils % (Manual) 43 % Lymphocytes % 47 % Monocytes % 5 % Eosinophils % 2 % Basophils % 1 % Neutrophils # (Manual) 8.1 TH/MM3 Myelocytes 2 % Differential Comment FINAL DIFF MANUAL Atypical Lymphocytes % Platelet Estimate NORMAL Platelet Morphology Comment CLUMPED Prothrombin Time 11.6 SEC Prothromb Time International Ratio 1.0 RATIO Activated Partial Thromboplast Time 23.3 SEC Bedside Sodium 143 MMOL/L Bedside Potassium 4.9 MMOL/L Bedside Chloride 104 MMOL/L Bedside Blood Urea Nitrogen 15 MG/DL Bedside Creatinine 1.4 MG/DL Bedside Glucose 173 MG/DL Total Bilirubin 0.5 MG/DL 0.7 MG/DL Direct Bilirubin 0.2 MG/DL 0.1 MG/DL Indirect Bilirubin 0.3 MG/DL 0.6 MG/DL Aspartate Amino Transf (AST/SGOT) 32 U/L 64 U/L Alanine Aminotransferase (ALT/SGPT) 27 U/L 32 U/L Alkaline Phosphatase 89 U/L 78 U/L Total Protein 7.1 GM/DL 6.2 GM/DL Albumin 4.0 GM/DL 3.5 GM/DL Ethyl Alcohol Level LESS THAN 3 MG/DL Blood Gas Puncture Site RT RADIAL Blood Gas Patient Temperature 98.6 Blood Gas HCO3 22 mmol/L Blood Gas Base Excess -3.1 mmol/L Blood Gas Oxygen Saturation 98 % Arterial Blood pH 7.32 Arterial Blood Partial Pressure CO2 44 mmHg Arterial Blood Partial Pressure O2 342 mmHg Arterial Blood Oxygen Content 20.9 Vol % Arterial Blood Carboxyhemoglobin 0.8 % Arterial Blood Methemoglobin 1.1 % Blood Gas Hemoglobin 14.6 G/DL Oxygen Delivery Device VENTILATOR Blood Gas Ventilator Setting SEE COMMENT Blood Gas Inspired Oxygen 100 % Blood Urea Nitrogen 13 MG/DL Creatinine 1.12 MG/DL Random Glucose 70 MG/DL Calcium Level 8.2 MG/DL Sodium Level 142 MEQ/L Potassium Level 4.1 MEQ/L Chloride Level 110 MEQ/L Carbon Dioxide Level 24.5 MEQ/L Anion Gap 8 MEQ/L Estimat Glomerular Filtration Rate 80 ML/MIN Date/Time Source Procedure Growth Status 01/02/17 21:00 Blood Peripheral Aerobic Blood Culture - Preliminary NO GROWTH IN 1 DAY Resulted 01/02/17 21:00 Blood Peripheral Anaerobic Blood Culture - Preliminary NO GROWTH IN 1 DAY Resulted 01/03/17 01:15 Sputum Endotracheal Gram Stain - Final Resulted 01/03/17 01:15 Sputum Endotracheal Sputum Culture Pending Resulted Mental Status Examination Appearance man, undress from waist up, multiple tattoos, agitated, irritable oppositional and resistant Speech: Rapid Orientation: x3 Memory: Unremarkable Thought Process: Goal Directed, Loose Association Thought Content: Paranoid Language Patient is proper grammar, good diction, appropriate use of sentences Fund of Knowledge Adequate for level of education Attention and Concentration: Good Suicidal Ideation: No Previous Suicide Attempts: Yes Homicidal Ideation: No Previous Homicide Attempts: No Insight: Poor Affect: Irritable, Oppositional Mood: Irritable, Manic Motor Activity: Normal gait Assessment & Plan Problem List: (1) Bipolar disorder ICD Codes: F31.9 - Bipolar disorder, unspecified Assessment & Plan: On the psychiatric evaluation today patient is oppositional , irritable, resistant to the psychiatric evaluation. Patient has an elevated mood, yelling and screaming frequently, could become restless and agitated, but he is redirectable. Patient persistently minimized his recent suicidal attempt stated that he doesn't remember had no memories of his life in last hours. He denies using alcohol or illicit drugs. As per collateral information from his last psychiatric hospitalization in 2014 in [facility], she carry psychiatric history bipolar disorder, noncompliant with medications, has history of very lethal suicide attempts in the past. Due to lethality of recent suicidal attempt, past psychiatric history and evidence symptoms of krista , patient is psychiatric admission for stabilization. Patient is to remain with a sitter in the medical floor. Transfer to psychiatry as soon as patient is medically stable. No psychotropics will be started at this moment. Will order Haldol 5 mg every 8 hours when necessary aggressive behavior and agitation with Ativan 2 mg every 8 hours when necessary aggressive behavior and agitation. Extensive support, motivation and psychoeducation provided. Case discussed with primary medical team and nurse in charge. Assessment & Plan Estimated LOS: days Amish Simental MD Jan 03, 2017 13:50
[2017-01-03] MEDS: QUEtiapine FUMARATE 100 MG TAB PO SCH ×2 (14:00→22:44)
[2017-01-03] MEDS: ENOXAPARIN SODIUM 40 MG/0.4 ML SYRINGE SQ SCH (18:00)
[2017-01-03] MEDS: PANTOPRAZOLE SODIUM 40 MG VIAL IV SCH (18:00)
[2017-01-03] MEDS ORDERED: RESP: ALBUTEROL 1.25 MG/3 ML NEB (PRN) NEB (19:30)
[2017-01-03] MEDS ORDERED: MAGNESIUM HYDROXIDE SUSP 30 ML CUP PO SCH (21:00)
--- NOTE | 2017-01-03 21:29 | MB ---
cc: Nahomi PHAM M.D. DATE OF CONSULTATION 01/03/2017 REASON FOR CONSULTATION Pulmonary nodular infiltrates. HISTORY OF PRESENT ILLNESS This is a 26-year-old white male who has had a longstanding history of major depression and previous suicide attempts, was brought to the [place] emergency room following hanging, suicidal attempt. The patient had a GCS of 7 and he received some Ativan intravenously and was intubated in the emergency room and sedated, placed on ventilator support and on a propofol drip. The patient was worked up with a C-spine CT and CT of the neck. The chest x-ray was also done as well as a CT chest. The patient's chest CT was reportedly showing bilateral airspace disease with nodular infiltrates. No prior CT to compare. The patient, however, was weaned off the ventilator and was placed on O2 via nasal cannula after extubation. His O2 sats are still running low and presently on 5 liters of oxygen but does not wear it and is somewhat agitated and states the nasal cannula causes some nausea. He is moving all his extremities and seems to be in no acute respiratory distress, not running any fevers. No hemoptysis and denies chest pain. PAST HISTORY Significant for depression and previous history for rib fractures, prior suicide attempts. He has also had an abdominal operation done in the past. FAMILY HISTORY Noncontributory. HABITS Unable to obtain information, the patient is uncooperative. REVIEW OF SYSTEMS The patient does not volunteer any information, seems somewhat agitated and is lying on his side with eyes closed. ALLERGIES None aer listed. PHYSICAL EXAMINATION GENERAL: This well-built young white male is awake but uncooperative, slightly restless. VITAL SIGNS: Blood pressure is 110/60, pulse is 90, respirations are 16, temperature 97.8. HEENT: Pupils reactive. Throat was clear. Nasal mucosa is clear. NECK: Supple. No venous distension. No bruits. CHEST: Equal movements with occasional scattered wheezes upper chest. HEART: Heart sounds are regular S1-S2. No murmur. ABDOMEN: Abdomen is soft, nontender. No organomegaly. Bowel sounds are active. EXTREMITIES: No lesions. No edema. Reflexes are 1+. The patient does move all his extremities with no gross motor deficits. RECTAL: Exam is deferred. SKIN: No lesions are noted. IMPRESSION 1. Status post suicidal attempt with hanging and asphyxia. 2. Bilateral pulmonary infiltrates with possible pulmonary edema. 3. Probable aspiration. 4. Hyperglycemia. 5. Major depression. PLAN The patient has been placed on a simple mask at 50% FIO2 with aerosol. Chest x-ray to be repeated in the a.m., incentive spirometry q. 2 hours if the patient cooperates. BiPap will be used at night if the patient desaturates to below 92. The patient will be given nebulized albuterol solution q.i.d. p.r.n. Antibiotic therapy per Dr. Michaels and the patient may need a followup CT scan of the chest in approximately 3-4 weeks. I will follow the case with you, Dr. Michaels, thank you for this consultation. MD VINNIE Cisse/JIL /7:21 PM /9:08 PM
[2017-01-04] VITALS (7 sets, daily range): BP systolic 93–107; BP diastolic 51–59; PULSE 75–92; RESP 12–22; TEMP 99.3–99.6; O2SAT 90–96
[2017-01-04] MEDS: AMPICILLIN/SULBAC 3 GM/NS 100 ML IV SCH ×4 (01:51→06:48)
[2017-01-04] MEDS: INSULIN ASPART SUPPLEMENTAL SCALE SQ SCH ×2 (02:00→08:00)
--- NOTE | 2017-01-04 05:08 | RADRPT ---
EXAM DATE/TIME: 01/04/2017 03:30 [facility] COMPARISON: CHEST SINGLE AP, January 03, 2017, 4:31. INDICATIONS : Trauma. Short of breath. MEDICAL HISTORY : None. SURGICAL HISTORY : None. ENCOUNTER: Subsequent ACUITY: 2 days PAIN SCORE: 0/10 LOCATION: Bilateral chest FINDINGS: Interval extubation and removal of gastric tube. The lungs are symmetrically aerated and clear. The heart is normal size for AP technique. Both hemidiaphragms well delineated. CONCLUSION: The lungs are clear. Juarez Edmond MD on January 04, 2017 at 5:06 Board Certified Radiologist. This report was verified electronically.
[2017-01-04] MEDS: QUEtiapine FUMARATE 100 MG TAB PO SCH (05:41)
[2017-01-04 05:45] LABS: AUTOMATED NEUTROPHIL # 8.1 TH/MM3 (1.8-7.7); BASOPHIL % 0.4 % (0.0-2.0); EOSINOPHIL # 0.1 TH/MM3 (0-0.4); HEMATOCRIT 41.3 % (39.0-51.0); HEMO FLAGS DIFF FINAL; LYMPH % 16.8 % (9.0-44.0); LYMPHOCYTE # 1.9 TH/MM3 (1.0-4.8); MEAN CORPUSCULAR HEMOGLOBIN 30.4 PG (27.0-34.0); MEAN CORPUSCULAR HGB CONC 33.8 % (32.0-36.0); MONO % 8.8 % (0.0-8.0); PLATELET COUNT 149 TH/MM3 (150-450); RED BLOOD COUNT 4.59 MIL/MM3 (4.50-5.90); RED CELL DISTRIBUTION WIDTH 12.9 % (11.6-17.2); WHITE BLOOD COUNT 11.1 TH/MM3 (4.0-11.0)
[2017-01-04 06:07] LABS: ANION GAP 7 MEQ/L (5-15); AST (GOT) 63 U/L (15-37); BICARBONATE 28.6 MEQ/L (21.0-32.0); BLOOD UREA NITROGEN 11 MG/DL (7-18); CHLORIDE 104 MEQ/L (98-107); GLOMERULAR FILTRATION RATE 100 ML/MIN (>89); POTASSIUM 3.3 MEQ/L (3.5-5.1); SODIUM (NA) 140 MEQ/L (136-145)
[2017-01-04 06:10] LABS: ALKALINE PHOSPHATASE 73 U/L (45-117); ALT (GPT) 33 U/L (12-78); TOTAL BILIRUBIN ADULT 0.9 MG/DL (0.2-1.0)
[2017-01-04 06:31] LABS: BLOOD GAS BASE EXCESS 5.2 mmol/L (-2-2); BLOOD GAS CARBOXYHEMOGLOBIN 1.6 % (0-4); BLOOD GAS HCO3 29 mmol/L (22-26); BLOOD GAS METHEMOGLOBIN 0.8 % (0-2); BLOOD GAS O2 HGB SATURATION 88 % (90-100); BLOOD GAS OXYGEN CONTENT 17.2 Vol % (12.0-20.0); BLOOD GAS PCO2 40 mmHg (38-42); BLOOD GAS PO2 56 mmHg (61-120); BLOOD GAS TOTAL HGB 13.9 G/DL (12.0-16.0); TEMP CORR TO 98.6
[2017-01-04 06:32] LABS: CRITICAL VALUE YES; OXYGEN DEVICE ROOM AIR
[2017-01-04 06:33] LABS: DRAW SITE RT RADIAL; NUMBER OF ARTERIAL PUNCTURES 1; STAT NO; ULNAR PULSE PRESENT
[2017-01-04] MEDS ORDERED: POTASSIUM CHLORIDE 20 MEQ CONTROLLED RELEASE TAB PO ONE (08:15)
[2017-01-04] MEDS: SODIUM CHLORIDE 0.9% FLUSH 10 ML FLUSH IV FLUSH SCH (08:29)
[2017-01-04] MEDS: DOCUSATE SODIUM 50 MG/SENNA 8.6 MG TAB PO SCH (08:29)
[2017-01-04] MEDS ORDERED: LACTULOSE SYRUP 20 GM/30 ML CUP PO SCH (09:00)
[2017-01-04] MEDS ORDERED: SODIUM CHLOR 0.9% 1000 ML INJ 1,000 ML IV SCH (10:15)
[2017-01-04] MEDS ORDERED: INSULIN ASPART SUPPLEMENTAL SCALE SQ SCH (14:00)
--- NOTE | 2017-01-04 14:16 | HHI.PYPN ---
Subjective Remarks Patient was seen today for psychiatric reevaluation, patient has a brighter affect, but oppositional and resistant to cooperate, he reports that he has been doing okay he just wants to sleep. Patient denies suicidal and homicidal ideation, he denies visual and auditory hallucinations. Patient seems to be minimizing recent suicidal attempt. He continues to say that he doesn't remember anything that happened in the las 24 hours. As per nurses patient has been calm, without any agitation or aggressive, however patient has requested to sign DNI and DNR stating that "I don't want to be resuscitated". He is oriented 3, no attention deficit, no fluctuation of consciousness. He seems to be agreeable with transfer to psychiatry. Review of Systems Other No somatic complaints Objective Alert: Yes Andrews: Person, Date, Situation Mood: Oppositional Affect: Other (irritable) Memory Intact: Immediate, Recent Hallucinations: Other (no hallucinations) Delusions: No Delusion Type: Other (no elicited at this moment) Suicidal: Ideation (he denies at this moment) Homicidal: Ideation (no HI) Insight/Judgment Poor Labs Test 01/04/17 05:30 01/04/17 06:11 White Blood Count 11.1 TH/MM3 Red Blood Count 4.59 MIL/MM3 Hemoglobin 14.0 GM/DL Hematocrit 41.3 % Mean Corpuscular Volume 90.0 FL Mean Corpuscular Hemoglobin 30.4 PG Mean Corpuscular Hemoglobin Concent 33.8 % Red Cell Distribution Width 12.9 % Platelet Count 149 TH/MM3 Mean Platelet Volume 9.2 FL Neutrophils (%) (Auto) 73.0 % Lymphocytes (%) (Auto) 16.8 % Monocytes (%) (Auto) 8.8 % Eosinophils (%) (Auto) 1.0 % Basophils (%) (Auto) 0.4 % Neutrophils # (Auto) 8.1 TH/MM3 Lymphocytes # (Auto) 1.9 TH/MM3 Monocytes # (Auto) 1.0 TH/MM3 Eosinophils # (Auto) 0.1 TH/MM3 Basophils # (Auto) 0.0 TH/MM3 CBC Comment DIFF FINAL Differential Comment Blood Urea Nitrogen 11 MG/DL Creatinine 0.92 MG/DL Random Glucose 87 MG/DL Total Protein 6.1 GM/DL Albumin 3.2 GM/DL Calcium Level 8.0 MG/DL Alkaline Phosphatase 73 U/L Aspartate Amino Transf (AST/SGOT) 63 U/L Alanine Aminotransferase (ALT/SGPT) 33 U/L Total Bilirubin 0.9 MG/DL Sodium Level 140 MEQ/L Potassium Level 3.3 MEQ/L Chloride Level 104 MEQ/L Carbon Dioxide Level 28.6 MEQ/L Anion Gap 7 MEQ/L Estimat Glomerular Filtration Rate 100 ML/MIN Magnesium Level 1.9 MG/DL Blood Gas Puncture Site RT RADIAL Blood Gas Patient Temperature 98.6 Blood Gas HCO3 29 mmol/L Blood Gas Base Excess 5.2 mmol/L Blood Gas Oxygen Saturation 88 % Arterial Blood pH 7.47 Arterial Blood Partial Pressure CO2 40 mmHg Arterial Blood Partial Pressure O2 56 mmHg Arterial Blood Oxygen Content 17.2 Vol % Arterial Blood Carboxyhemoglobin 1.6 % Arterial Blood Methemoglobin 0.8 % Blood Gas Hemoglobin 13.9 G/DL Oxygen Delivery Device ROOM AIR Date/Time Source Procedure Growth Status 01/02/17 21:00 Blood Peripheral Aerobic Blood Culture - Preliminary NO GROWTH IN 2 DAYS Resulted 01/02/17 21:00 Blood Peripheral Anaerobic Blood Culture - Preliminary NO GROWTH IN 2 DAYS Resulted 01/03/17 01:15 Sputum Endotracheal Gram Stain - Final Resulted 01/03/17 01:15 Sputum Endotracheal Sputum Culture - Preliminary HEAVY GROWTH NORMAL RESPIRATORY QUE... Resulted Vitals/IOs Vital Signs Date Time Temp Pulse Resp B/P (MAP) Pulse Ox O2 Delivery O2 Flow Rate FiO2 01/04/17 09:03 96 21 01/04/17 08:00 Nasal Cannula 1.00 01/04/17 08:00 99.3 75 12 107/59 (75) Intake and Output 01/04/17 01/04/17 01/05/17 08:00 16:00 00:00 Intake Total 315 ml Balance 315 ml Assessment & Plan Problem List: (1) Bipolar disorder ICD Codes: F31.9 - Bipolar disorder, unspecified Assessment & Plan: Due to the lethality of recent suicidal attempt, previous history of previous suicidal attempts, increased irritability, minimization of potential depression and suicidal attempt, she needs to continue for psychiatric admission for stabilization and safety. Patient might benefit of mood stabilizers, as per collateral information from psychiatrist in [facility], he was stable on Depakote 750 TID and Seroquel 150 g at bedtime. Assessment & Plan Estimated LOS: days Justification for Cont. Inpt. Patient needs psychiatric hospitalization for stabilization. Amish Simental MD Jan 04, 2017 14:16
== END 2017-01-04 12:49 | DRG 922 ==
LOC: NEPI 16:10 → EDBD 17:27 → NEDA 17:27 → N03A 18:11
PROVIDERS: ADMIT Surgery; ATTEND Surgery
PROC: 0BH17EZ Insertion of Endotracheal Airway into Trachea, Via Natural or Artificial Opening (ICD-10-PCS; principal; 2017-01-02)
PROC: 5A1935Z Respiratory Ventilation, Less than 24 Consecutive Hours (ICD-10-PCS; 2017-01-02)
DX: T71.162A Asphyxiation due to hanging, intentional self-harm, initial encounter (principal); J96.01 Acute respiratory failure with hypoxia; J69.0 Pneumonitis due to inhalation of food and vomit; J81.1 Chronic pulmonary edema; F31.9 Bipolar disorder, unspecified; Z91.19 Patient's noncompliance with other medical treatment and regimen; R73.9 Hyperglycemia, unspecified; R00.0 Tachycardia, unspecified; R40.2431 Glasgow coma scale score 3-8, in the field [EMT or ambulance]
CPT/HCPCS: 31500; 36600; 70450; 70496; 70498; 71010; 71260; 72125; 80048; 80053; 80076; 80307; 82164; 82435; 82565; 82805; 82947; 83735; 84132; 84295; 84520; 85007; 85025; 85027; 85610; 85730; 86850; 86900; 86901; 87040; 87070; 87205; 93306; 94002; 94003; 94150; 94640; 94667; 96360; 99291; C9113; G0390; J0295; J1650; J1940; J3010; J7030; Q9967

== ENCOUNTER 2017-01-04 15:00 | Inpatient (IN) | payer OTHER, MEDICARE ==
[~2017-01-04] VITALS: Ht 180.3 cm; Wt 60.8 kg
[~2017-01-04 15:00] MED LIST: HALO5P IM; MAGN400S PO; QUET1TAB8 PO; SENN1TAB PO; TYLE325T PO; ZIPR20P IM
[2017-01-04] MEDS ORDERED: ACETAMINOPHEN 325 MG TAB PO PRN ×2 (15:30)
[2017-01-04] MEDS ORDERED: LORazepam 0.5 MG TAB PO PRN (15:30)
[2017-01-04] MEDS ORDERED: MAGNESIUM HYDROXIDE SUSP 30 ML CUP PO PRN (15:30)
[2017-01-04] MEDS: NICOTINE 21 MG/24 HR PATCH T-DERMAL SCH (15:30)
[2017-01-04] MEDS ORDERED: LORazepam 1 MG TAB PO PRN (15:30)
[2017-01-04] MEDS ORDERED: ALUMINUM/MAGNESIUM/SIMETH 30 ML CUP PO PRN (15:30)
[2017-01-04] MEDS ORDERED: HALOPERIDOL LACTATE 5 MG/ML AMP IM PRN (15:30)
[2017-01-04] MEDS ORDERED: LORazepam 2 MG/ML VIAL IM PRN ×2 (15:30)
[2017-01-04] MEDS ORDERED: ZIPRASIDONE MESYLATE 20 MG VIAL IM PRN (15:30)
[2017-01-04] MEDS: QUEtiapine FUMARATE 100 MG TAB PO SCH ×2 (17:00→20:46)
--- NOTE | 2017-01-04 18:09 | HHI.PR ---
Subjective Remarks Alert and on O2 2 L. No cough but has some wheezing. CXR is better. Will go to Psych unit. Objective Objective Remarks GENERAL: This well-built young white male is awake and in No distress. HEENT: Pupils reactive. Throat was clear. Nasal mucosa is clear. NECK: Supple. No venous distension. Abrasion over neck. No bruits. CHEST: Equal movements with occasional scattered wheezes upper chest. HEART: Heart sounds are regular S1-S2. No murmur. ABDOMEN: Abdomen is soft, nontender. No organomegaly. Bowel sounds are active. EXTREMITIES: No lesions. No edema. Reflexes are 1+. The patient does move all his extremities with no gross motor deficits. RECTAL: Exam is deferred. SKIN: No lesions are noted. Assessment and Plan Assessment and Plan IMPRESSION 1. Status post suicidal attempt with hanging and asphyxia. 2. Bilateral pulmonary infiltrates with possible pulmonary edema. 3. Probable aspiration. 4. Hyperglycemia. 5. Major depression. Plan : 1. Continue antibiotics per DR Michaels. 2. Wean O2 to RA, and Keep sat >92 3. Nebs tid prn with Albuterol. 4. Chest Xray on Saturday. 5. BMP,CBC in am. 6. Transfer to Psych Unit Nahomi Barreto MD Jan 04, 2017 18:09
[2017-01-04 18:56] VITALS: BP 126/65; PULSE 84; RESP 18; TEMP 98.1; O2SAT 96
[2017-01-05 05:39] VITALS: BP 128/55; PULSE 74; RESP 18; TEMP 98.3; O2SAT 96
[2017-01-05] MEDS: QUEtiapine FUMARATE 100 MG TAB PO SCH ×2 (06:36→16:02)
[2017-01-05 10:15] LABS: ANION GAP 5 MEQ/L (5-15); BICARBONATE 28.5 MEQ/L (21.0-32.0); BLOOD UREA NITROGEN 10 MG/DL (7-18); CHLORIDE 107 MEQ/L (98-107); GLOMERULAR FILTRATION RATE 99 ML/MIN (>89); SODIUM (NA) 140 MEQ/L (136-145)
[2017-01-05 10:17] LABS: HDL CHOLESTEROL 56.1 MG/DL (40.0-60.0); LDL CHOLESTEROL 63 MG/DL (0-99)
--- NOTE | 2017-01-05 11:18 | HHI.PYPN ---
Subjective Remarks Patient is irritable and unhappy about being in the hospital. However, he is not threatening suicide. Sitter is inappropriate at this time and will be discontinued. Review of Systems Except as stated in HPI: all other systems reviewed are Neg Objective Alert: Yes Erwin: Person, Place, Date, Situation Mood: Angry Affect: Other Memory Intact: Immediate, Recent, Remote Hallucinations: Other Delusions: No Delusion Type: Other Suicidal: Ideation Homicidal: Ideation Insight/Judgment Impaired Labs Test 01/05/17 09:09 Blood Urea Nitrogen 10 MG/DL Creatinine 0.93 MG/DL Random Glucose 105 MG/DL Calcium Level 8.7 MG/DL Sodium Level 140 MEQ/L Potassium Level 4.0 MEQ/L Chloride Level 107 MEQ/L Carbon Dioxide Level 28.5 MEQ/L Anion Gap 5 MEQ/L Estimat Glomerular Filtration Rate 99 ML/MIN Triglycerides Level 117 MG/DL Cholesterol Level 142 MG/DL LDL Cholesterol 63 MG/DL HDL Cholesterol 56.1 MG/DL Cholesterol/HDL Ratio 2.53 RATIO Vitals/IOs Vital Signs Date Time Temp Pulse Resp B/P (MAP) Pulse Ox O2 Delivery O2 Flow Rate FiO2 01/05/17 05:39 98.3 74 18 128/55 (79) 96 Intake and Output 01/05/17 01/05/17 01/05/17 07:59 15:59 23:59 Intake Total 960 ml Balance 960 ml Assessment & Plan Problem List: (1) Bipolar disorder ICD Codes: F31.9 - Bipolar disorder, unspecified Assessment & Plan Continue current medications. DC sitter. Estimated LOS: days Justification for Cont. Inpt. Likely to decompensate at lower level of care. Raphael Delgado MD Jan 05, 2017 11:18
--- NOTE | 2017-01-05 11:28 | HHI.PR ---
Subjective Remarks This is a pleasant 26 y/o male who came to ER after was found by his Mother hanging from a ceiling fan with the dog leash Reportedly family had to cut him down. When he cut down he fell and hit his head on the back of the table. Seen in his bedroom stable, was spiting some tissue. no nausea, vomit or diarrhea, no respiratory insufficiency today. Objective Vital Signs Date Time Temp Pulse Resp B/P (MAP) Pulse Ox O2 Delivery O2 Flow Rate FiO2 01/05/17 05:39 98.3 74 18 128/55 (79) 96 01/04/17 18:56 98.1 84 18 126/65 (85) 96 I/O 01/04/17 01/04/17 01/04/17 01/05/17 01/05/17 01/05/17 07:00 15:00 23:00 07:00 15:00 23:00 Intake Total 720 ml 240 ml Balance 720 ml 240 ml Intake Oral 720 ml 240 ml # Voids 3 Result Diagram: 01/05/17 0909 Procedures None Other Results Laboratory Tests Test 01/05/17 09:09 Blood Urea Nitrogen 10 MG/DL Creatinine 0.93 MG/DL Random Glucose 105 MG/DL Calcium Level 8.7 MG/DL Sodium Level 140 MEQ/L Potassium Level 4.0 MEQ/L Chloride Level 107 MEQ/L Carbon Dioxide Level 28.5 MEQ/L Anion Gap 5 MEQ/L Estimat Glomerular Filtration Rate 99 ML/MIN Triglycerides Level 117 MG/DL Cholesterol Level 142 MG/DL LDL Cholesterol 63 MG/DL HDL Cholesterol 56.1 MG/DL Cholesterol/HDL Ratio 2.53 RATIO Objective Remarks GENERAL: No acute distress. SKIN: Clammy and cyanotic. HEAD: Normocephalic. No evidence of trauma. EYES: Pupils equal and round. No scleral icterus. No injection or drainage. ENT: No nasal bleeding or discharge. Mucous membranes pink and moist. NECK: Trachea midline. No definite obvious ligature thrasher or bruising. No crepitus. CARDIOVASCULAR: Regular rate and rhythm. systolic murmur present. RESPIRATORY: No accessory muscle use. Clear to auscultation. Breath sounds equal bilaterally. GASTROINTESTINAL: Abdomen soft, non-tender, nondistended. Hepatic and splenic margins not palpable. MUSCULOSKELETAL: No obvious deformities. No clubbing. No cyanosis. No edema. Medications and IVs Current Medications Medications (Trade) Dose Ordered Sig/Mason Route Start Time Stop Time Status Last Admin (Haldol Inj) 4 mg Q6H PRN IM 01/04/17 15:30 (SEROquel) 100 mg Q8HR PO 01/04/17 17:00 01/05/17 06:36 (Geodon Inj) 10 mg Q12HR PRN IM 01/04/17 15:30 (Ativan) 1 mg Q6H PRN PO 01/04/17 15:30 (Ativan Inj) 1 mg Q6H PRN IM 01/04/17 15:30 (Tylenol) 650 mg Q4H PRN PO 01/04/17 15:30 (Milk Of Magnesia Liq) 30 ml DAILY PRN PO 01/04/17 15:30 (Mag-Al Plus Susp Liq) 30 ml Q6H PRN PO 01/04/17 15:30 (Habitrol 21 Mg Patch.24 Hr) 1 patch DAILY T-DERMAL 01/04/17 15:30 A/P Assessment and Plan 1. Status post suicidal attempt with hanging and asphyxia. 2. Bilateral pulmonary infiltrates with possible pulmonary edema. Improving on CXR will follow in am tomorrow with new CXR 3. Probable aspiration on antibiotics. 4. Bipolar Disorder followed in Psychiatric unit. 5. Heart Failure systolic EF 20-25%. stable. at this time I think due to Moderate to severely dilated left Ventricle, this is a chronic pathology, will get culinary specialist consult to prepare the patient for probable defibrillator placement if the patient is considered candidate for this procedure, also will need when possible STEFANI inhibitors and Carvedilol to improve survival. DVT prophylaxis at this time the patient showed me some tissue with blood after coughing will follow not recommended chemical anticoagulation and the patient is active in his bedroom. Discharge Planning as per Attending physician. Berhane Hurt MD Jan 05, 2017 11:28
[2017-01-05] MEDS: NICOTINE 21 MG/24 HR PATCH T-DERMAL SCH (11:43)
--- NOTE | 2017-01-05 12:32 | HHI.PYPN ---
Subjective Remarks Patient seen and case discussed with nurse. Objective Alert: Yes Dunning: Person, Place, Date, Situation Mood: Angry Affect: Other Memory Intact: Immediate, Recent, Remote Hallucinations: Other Delusions: No Delusion Type: Other Suicidal: Ideation Homicidal: Ideation Labs Test 01/05/17 09:09 Blood Urea Nitrogen 10 MG/DL Creatinine 0.93 MG/DL Random Glucose 105 MG/DL Calcium Level 8.7 MG/DL Sodium Level 140 MEQ/L Potassium Level 4.0 MEQ/L Chloride Level 107 MEQ/L Carbon Dioxide Level 28.5 MEQ/L Anion Gap 5 MEQ/L Estimat Glomerular Filtration Rate 99 ML/MIN Triglycerides Level 117 MG/DL Cholesterol Level 142 MG/DL LDL Cholesterol 63 MG/DL HDL Cholesterol 56.1 MG/DL Cholesterol/HDL Ratio 2.53 RATIO Vitals/IOs Vital Signs Date Time Temp Pulse Resp B/P (MAP) Pulse Ox O2 Delivery O2 Flow Rate FiO2 01/05/17 05:39 98.3 74 18 128/55 (79) 96 Intake and Output 01/05/17 01/05/17 01/06/17 08:00 16:00 00:00 Intake Total 960 ml Balance 960 ml Assessment & Plan Problem List: (1) Bipolar disorder ICD Codes: F31.9 - Bipolar disorder, unspecified Assessment & Plan Estimated LOS: Raphael Horne MD Jan 05, 2017 12:32
[2017-01-05] MEDS ORDERED: LISINOPRIL 5 MG TAB PO SCH (16:00)
--- NOTE | 2017-01-05 16:13 | MB ---
cc: LUNA SALGADO MD DATE OF CONSULTATION: 01/05/17 REASON FOR CONSULTATION Cardiomyopathy. HISTORY OF PRESENT ILLNESS The patient is a pleasant though troubled 26-year-old gentleman who presented after a suicide attempt where he tried to hang himself from the ceiling fan with a dog leash. However, the ceiling fan crashed from the ceiling so the attempt was unsuccessful, but he apparently was hypoxic long enough to lose consciousness and was brought in as a trauma. He has since been extubated from his initial intubation and denies any recollection of the whole event and denies any suicidal attempt. He does admit to polysubstance abuse including cocaine and other similar type substances. The patient is currently asymptomatic denying any chest pain, shortness of breath, lightheadedness or dizziness and no history of same. PAST MEDICAL HISTORY 1. Polysubstance abuse. 2. Recent suicide attempt. CURRENT MEDICATIONS Seroquel. ALLERGIES NO KNOWN DRUG ALLERGIES. PHYSICAL EXAMINATION VITAL SIGNS: Afebrile, pulse 74, respiratory rate 18, BP 120/55, sating 96 on 2 liters. GENERAL: A pleasant young gentleman in no distress. NECK: No JVD. LUNGS: Clear to auscultation bilaterally. CARDIOVASCULAR: Regular rate and rhythm. No murmurs appreciated. ABDOMEN: Benign. EXTREMITIES: No edema. LABORATORY DATA Sodium 140, potassium 4.0, chloride 107, bicarb 28.5, BUN 10, creatinine 0.93, glucose 105. EKG is pending. Echocardiogram showed a moderately dilated left ventricle with an ejection fraction of 20-25% with global hypokinesis. IMPRESSION Cardiomyopathy. I suspect the patient most likely has a stress induced cardiomyopathy from his suicide attempt and hopefully his LVF will recover fairly quickly. However, he does have a history of cocaine use so coronary atherosclerosis is not entirely out of the question. I will have him undergo a nuclear stress test to help delineate the cause of his cardiomyopathy and begin him on basic cardiomyopathy medications. I do recommend that he be placed on telemetry given his low ejection fraction and subsequent risk for cardiac dysrhythmia. I did offer a LifeVest but at this point he cannot determine whether or not he would actually wear one but he will consider it. Further complicating the matter is the patient is currently Agosto acted so I am not certain to what degree consent plays a role for his various testing. Further recommendations will be based on the above tests and his clinical course. Thank you again for the opportunity to participate in this patient's care. MD KASSIE Wilkes/DAVID /3:01 PM /3:41 PM
[2017-01-05 17:25] LABS: CKMB 1.6 NG/ML (0.5-3.6)
[2017-01-05] MEDS ORDERED: CARVEDILOL 3.125 MG TAB PO SCH (21:00)
[2017-01-06 11:17] LABS: HEMOGLOBIN A1a 1.1 %; HEMOGLOBIN A1b 0.7 %; HEMOGLOBIN Ao 85.9 %; HEMOGLOBIN F 0.9 %; HEMOGLOBIN LA1C 2.1 %; HEMOGLOBIN P3 3.6 %
--- NOTE | 2017-01-06 13:37 | EKG ---
Date Performed: 01/05/2017 Time Performed: 15:37:48 PTAGE: 26 years EKG: Sinus rhythm MARKED RIGHT AXIS DEVIATION Nonspecific T wave inversions in leads I and AVL ABNORMAL ECG NO PREVIOUS TRACING DOCTOR: Raphael Hinton Interpretating Date/Time 01/06/2017 13:37:31
--- NOTE | 2017-01-06 17:44 | HHI.DS ---
Psychiatry Discharge Summary Inpatient Psychiatric care?: Yes Advance Directive: No Mental Health AdvanceDirective: No Health Care Proxy: No Admission Admission Date Jan 04, 2017 at 15:00 Admission Diagnosis: (1) Adjustment disorder with mixed disturbance of emotions and conduct ICD Code: F43.25 - Adjustment disorder with mixed disturbance of emotions and conduct Brief History Patient attempted to hang himself from a ceiling fan. Abuses cocaine. Tobacco Use In Past 30 Days: Cognitive Impairment Alcohol Use: Never Hospital Course Patient seen only briefly due to his transfer from psychiatry to medicine service. Results Blood Pressure 128 / 55 Vital Signs Date Time Temp Pulse Resp B/P (MAP) Pulse Ox O2 Delivery O2 Flow Rate FiO2 01/05/17 05:39 98.3 74 18 128/55 (79) 96 Laboratory Tests Test 01/05/17 09:09 01/05/17 15:59 Total Creatine Kinase 989 U/L (39-308) Troponin I 0.26 NG/ML (0.02-0.05) Laboratory Results Test 01/05/17 09:09 Cholesterol Level 142 MG/DL (120-200) HDL Cholesterol 56.1 MG/DL (40.0-60.0) Hemoglobin A1c 5.1 % (4.3-6.0) LDL Cholesterol 63 MG/DL (0-99) Triglycerides Level 117 MG/DL (42-150) Summary of Procedures None Pending results at discharge: No Medications # of Antipsychotic meds at D/C: 0 Approp Antipsych med options 1 - Minimum of three failed multiple trials of monotherapy. 2 - Documented plan to taper to monotherapy due to previous use of multiple meds OR cross-taper in progress at D/C. 3 - Documentation of augmentation of Clozapine. 4 - Justification other than those listed in allowable values 1-3, document here : Discharge Discharge Date: Jan 05, 2017 Discharge Diagnosis: (1) Adjustment disorder with mixed disturbance of emotions and conduct Diagnosis: Principal ICD Code: F43.25 - Adjustment disorder with mixed disturbance of emotions and conduct Mental Status Exam at Disch Denied suicidal or homicidal ideation, plan or intent. Cognition intact and patient had no psychotic symptoms. Pt Condition on Discharge: Stable Discharge Disposition: Trnsfr to Other Facility Discharge Instructions Diet Instructions: Heart Healthy Diet Activities you can perform: Regular-No Restrictions Discharge Time <= 30 minutes Discharge/Advance Care Plan Health Problems: (1) Bipolar disorder Goals to promote your health * To prevent worsening of your condition and complications * To maintain your health at the optimal level Directions to meet your goals Take your medications as prescribed Follow your dietary instruction Follow activity as directed Keep your appointments as scheduled Take your immunizations and boosters as scheduled If your symptoms worsen call your PCP, if no PCP go to Urgent Care Center or Emergency Room For 05/11 questions related to your inpatient stay or results of tests pending at discharge, please contact Dr. Raphael Delgado at Smoking is Dangerous to Your Health. Avoid second hand smoking Raphael Delgado MD Jan 06, 2017 17:44
--- NOTE | 2017-01-07 13:36 | HHI.HP ---
Provisional Diagnosis Admission Date Jan 04, 2017 at 15:00 [place] I. Adjustment disorder with mixed disturbance of emotion and conduct Certification of Person's Competence To Provide Express and Informed Consent I have personally examined Charles Foster , a person being served at [facility] on, Jan 07, 2017 13:34. Express and informed consent means consent voluntarily given in writing, by a competent person, after sufficient explanation and disclosure of the subject matter involved to enable the person to make a knowing and willful decision without any element of force, fraud, deceit, duress, or other form of constraint or coercion. This person is 18 years of age or older, is not now known to be incompetent to consent to treatment with a guardian advocate, and does not have a health care surrogate or proxy currently making medical treatment decisions. I have found this person to be one of the following: [x] Competent to provide express and informed consent, as defined above, for voluntary admission to this facility and is competent to provide express and informed consent for treatment. He/she has the consistent capacity to make well reasoned, willful, and knowing decisions concerning his or her medical or mental health treatment. The person fully and consistently understands the purpose of the admission for examination/placement and is fully capable of personally exercising all rights assured [place] Incompetent to provide express and informed consent to voluntary admission, and this is incompetent to provide express and informed consent to treatment. The person must be transferred to involuntary status and a petition for a guardian advocate filed with the Circuit Court. [] Refusing to provide express and informed consent to voluntary admission but is competent to provide express and informed consent for treatment. The person must be discharged or transferred to involuntary status. Form shall be completed within 24 hours of a person's arrival at the receiving facility and filed in the clinical record of each person: 1. Admitted on a voluntary basis 2. Permitted to provide express and informed consent to his/her own treatment 3. Allowed to transfer from involuntary to voluntary status 4. Prior to permitting a person to consent to his or her own treatment after having been previously found incompetent to consent to treatment. History of Present Illness Capacity: Has Capacity HPI Patient attempted to hang himself from a ceiling fan. Abuses cocaine. Review of Systems Except as stated in HPI: all other systems reviewed are Neg Past Psych History Psychological trauma history Denied Violence risk - others (6 mos) Minimal Violence risk - self (6 mos) High Substance Abuse History Drugs/Alcohol past 12 months Abuses cocaine Past Family Social History Coded Allergies: No Known Allergies (Unverified , 01/02/17) Active Scripts Acetaminophen (Tylenol) 325 Mg Tab, 650 MG PO Q6H Y for pain for 5 Days, #40 TAB 0 Refills Prov:Zenia Franklin Curt RAYMOND 01/03/17 Sennosides-Docusate Sodium (Senna Plus 8.6-50 mg) 8.6 Mg-50 Mg Tab, 2 TAB PO BID for Constipation for 5 Days, #20 TAB Prov:Zenia Franklin Curt RAYMOND 01/03/17 Magnesium Hydroxide (Eq Milk of Magnesia) 400 Mg/5 Ml Shirley, 30 ML PO HS for Constipation for 5 Days, MG Prov:Zenia Franklin Curt DIE STAMPING PRESS OPERATOR 01/03/17 Ziprasidone Inj (Geodon Inj) 20 Mg/Ml (Final Concentration) Inj, 10 MG IM Q12HR Y for severe AGITATION for 3 Days, INJECTION Prov:AllanZenia Donato Curt DIE STAMPING PRESS OPERATOR 01/03/17 Quetiapine (Quetiapine) 100 Mg Tab, 100 MG PO Q8HR for behavior for 3 Days, TAB Prov:Zenia Franklin Curt DIE STAMPING PRESS OPERATOR 01/03/17 Haloperidol Inj (Haldol Inj) 5 Mg/Ml Inj, 4 MG IM Q6H Y for moderate agitation for 3 Days, INJECTION Prov:Zenia Franklin Curt DIE STAMPING PRESS OPERATOR 01/03/17 Family History Positive for mood and anxiety disorders Social History Unemployed. Abuses drugs. Not currently in school. Limited family support. Patient's Strengths (min. 2) Resilient and has access to healthcare Physical Exam GENERAL: SKIN: Warm and dry. HEAD: Normocephalic. EYES: No scleral icterus. No injection or drainage. NECK: Supple, trachea midline. No JVD or lymphadenopathy. CARDIOVASCULAR: Regular rate and rhythm without murmurs, gallops, or rubs. RESPIRATORY: Breath sounds equal bilaterally. No accessory muscle use. GASTROINTESTINAL: Abdomen soft, non-tender, nondistended. MUSCULOSKELETAL: No cyanosis, or edema. BACK: Nontender without obvious deformity. No CVA tenderness. Vital Signs Vital Signs Date Time Temp Pulse Resp B/P (MAP) Pulse Ox O2 Delivery O2 Flow Rate FiO2 01/05/17 05:39 98.3 74 18 128/55 (79) 96 Mental Status Examination Speech: Unremarkable Orientation: x3 Memory: Unremarkable Thought Process: Organized, Goal Directed Thought Content: Unremarkable Hallucination Type: None Attention and Concentration: Good Suicidal Ideation: No Previous Suicide Attempts: Yes Homicidal Ideation: No Previous Homicide Attempts: No Insight: Fair Judgment: WNL Affect: Good Mood: Appropriate Motor Activity: Normal gait Assessment & Plan Problem List: (1) Bipolar disorder ICD Codes: F31.9 - Bipolar disorder, unspecified Assessment & Plan Estimated LOS: days admitted for evaluation and treatment. Raphael Delgado MD Jan 07, 2017 13:36
== END 2017-01-05 18:47 | disposition short-term general hospital (02) | DRG 882 ==
LOC: H4EA 15:00 → N04B 01-05 18:29
PROVIDERS: ADMIT Psychiatry & Neurology Psychiatry; ATTEND Psychiatry & Neurology Psychiatry
DX: F43.25 Adjustment disorder with mixed disturbance of emotions and conduct (principal); I42.9 Cardiomyopathy, unspecified; I50.9 Heart failure, unspecified; F14.10 Cocaine abuse, uncomplicated; F31.9 Bipolar disorder, unspecified; Z87.891 Personal history of nicotine dependence; Z91.5 Personal history of self-harm
CPT/HCPCS: 80048; 80061; 82550; 82552; 83036; 84484; 93005

== ENCOUNTER 2017-01-05 17:58 | Inpatient (IN) | payer MEDICARE, MEDICAID ==
[~2017-01-05] VITALS: Ht 175.3 cm; Wt 64.8 kg
[2017-01-05] MEDS ORDERED: LACTULOSE SYRUP 20 GM/30 ML CUP PO PRN (19:15)
[2017-01-05] MEDS ORDERED: SENNOSIDES 8.6 MG TAB PO PRN (19:15)
[2017-01-05] MEDS ORDERED: MAGNESIUM HYDROXIDE SUSP 30 ML CUP PO PRN (19:15)
[2017-01-05] MEDS ORDERED: ACETAMINOPHEN 325 MG TAB PO PRN (19:15)
[2017-01-05] MEDS ORDERED: ONDANSETRON HCL 4 MG/2 ML VIAL IVP PRN (19:15)
[2017-01-05] MEDS ORDERED: BISACODYL 10 MG SUPP RECTAL PRN (19:15)
[2017-01-05] MEDS ORDERED: ZIPRASIDONE MESYLATE 20 MG VIAL IM PRN (19:15)
[2017-01-05] MEDS ORDERED: HALOPERIDOL LACTATE 5 MG/ML AMP IM PRN (19:15)
[2017-01-05] MEDS ORDERED: SODIUM CHLORIDE 0.9% FLUSH 10 ML FLUSH IV FLUSH PRN (19:15)
[2017-01-05] MEDS ORDERED: NALOXONE HCL 0.4 MG/ML AMP IV PUSH PRN (19:15)
[2017-01-05 20:00] VITALS: BP 124/76; PULSE 75; PULSE 79; RESP 18; TEMP 98.2; O2SAT 98
[2017-01-05] MEDS: DOCUSATE SODIUM 50 MG/SENNA 8.6 MG TAB PO SCH (20:13)
[2017-01-05] MEDS: SODIUM CHLORIDE 0.9% FLUSH 10 ML FLUSH IV FLUSH SCH (20:13)
[2017-01-05 22:00] VITALS: BP 114/56; PULSE 76; RESP 18; TEMP 97.7; O2SAT 97
[2017-01-05] MEDS: QUEtiapine FUMARATE 100 MG TAB PO SCH (22:36)
[2017-01-06 04:00] VITALS: BP 108/66; PULSE 70; RESP 16; TEMP 97.4; O2SAT 97
[2017-01-06] MEDS: QUEtiapine FUMARATE 100 MG TAB PO SCH ×3 (05:47→21:06)
[2017-01-06 07:52] VITALS: PULSE 57
[2017-01-06 08:00] VITALS: BP 113/58; PULSE 57; RESP 18; TEMP 97.9; O2SAT 97
[2017-01-06 08:01] LABS: AUTOMATED NEUTROPHIL # 5.1 TH/MM3 (1.8-7.7); BASOPHIL % 0.6 % (0.0-2.0); EOSINOPHIL # 0.2 TH/MM3 (0-0.4); HEMO FLAGS DIFF FINAL; LYMPH % 19.8 % (9.0-44.0); LYMPHOCYTE # 1.5 TH/MM3 (1.0-4.8); MEAN CELL VOLUME 90.1 FL (80.0-100.0); MEAN CORPUSCULAR HEMOGLOBIN 30.9 PG (27.0-34.0); MEAN CORPUSCULAR HGB CONC 34.3 % (32.0-36.0); MONO % 9.3 % (0.0-8.0); NEUT % 67.3 % (16.0-70.0); PLATELET COUNT 172 TH/MM3 (150-450); RED BLOOD COUNT 4.66 MIL/MM3 (4.50-5.90); RED CELL DISTRIBUTION WIDTH 12.6 % (11.6-17.2); WHITE BLOOD COUNT 7.6 TH/MM3 (4.0-11.0)
[2017-01-06 08:58] LABS: ANION GAP 4 MEQ/L (5-15); AST (GOT) 45 U/L (15-37); BICARBONATE 26.2 MEQ/L (21.0-32.0); BLOOD UREA NITROGEN 9 MG/DL (7-18); CHLORIDE 108 MEQ/L (98-107); GLOMERULAR FILTRATION RATE 123 ML/MIN (>89); POTASSIUM 4.1 MEQ/L (3.5-5.1); SODIUM (NA) 138 MEQ/L (136-145)
[2017-01-06] MEDS: REMOVE OLD PATCH T-DERMAL SCH (09:00)
[2017-01-06 09:02] LABS: ALKALINE PHOSPHATASE 69 U/L (45-117); ALT (GPT) 36 U/L (12-78); TOTAL BILIRUBIN ADULT 0.7 MG/DL (0.2-1.0)
--- NOTE | 2017-01-06 09:34 | RADRPT ---
EXAM DATE/TIME: 01/06/2017 09:04 [facility] COMPARISON: CHEST SINGLE AP, January 03, 2017, 4:31. CT THORAX W CONTRAST, January 02, 2017, 16:48. CHEST S RAJ AP, January 04, 2017, 3:30. INDICATIONS : CHF. Short of breath. MEDICAL HISTORY : Smoker. SURGICAL HISTORY : None. ENCOUNTER: Sequela ACUITY: 3 days PAIN SCORE: 0/10 LOCATION: Bilateral chest FINDINGS: Frontal and lateral views of the chest demonstrate a normal-sized cardiac silhouette. Lungs are abraham r aerated than the prior study but there may be mild degree of patchy airspace opacity in the right a nd left midlung zones. No effusion or pneumothorax is identified. Bones and soft tissues demonstrate no acute finding. There are old right rib fractures. CONCLUSION: Improved appearance of the lungs compared to the prior 2 examinations. There may be a mild amount of residual airspace opacity in the midlung zones bilaterally. No pleural effusion is present. Brando Haywood MD on January 06, 2017 at 9:30 Board Certified Radiologist. This report was verified electronically.
--- NOTE | 2017-01-06 10:52 | HHI.HP ---
HPI Service [facility] Hospitalists Primary Care Physician Unknown Admission Diagnosis Diagnoses: Chief Complaint: Suicide attempt by Hanging. Travel History International Travel<30 Days: No Contact w/Intl Traveler <30 Da: No Traveled to Known Affected Are: No History of Present Illness Emergency Medicine Notes: Patient admitted to this facility on 01/02/17 to Intensive Care unit after this 26 year old man came to ER with suicide attempt reportedly hanging. By EMS report, patient was found by his mom hanging from a ceiling fan with the dog leash. Reportedly family had to cut him down. When he cut down he fell and hit his head on the back of the table. He's been combative and agitated with EMS. Supervisor Fine Grading Note: 26-year-old male with past medical history of depression and prior suicide attempt who presented to [facility] emergency department as a trauma alert following hanging. GCS was 7 prehospital. Blood glucose was 121. He received Ativan 2 mg IV and 900 ML's of NS prehospital. GCS was reportedly 5 upon arrival. He was intubated by Dr. Duke after receiving etomidate 20 mg IV and succinylcholine 100 mg IV. He is on a propofol drip. Workup has included: CT brain - report states possible decreased attenuation in the left anterior mcclellan radiata characteristic of focal white matter disease. CT C-spine -no fracture CTA neck - negative for dissection Chest x-ray - satisfactory endotracheal tube position. Bilateral airspace disease CT chest - right basilar atelectasis. Old posterior rib fracture Review of systems cannot be obtained as patient has altered mental status and is intubated. Family was here earlier however unfortunately did not provide any contact information so I am also unable to obtain past medical history/past surgical history/family history/ social history/medications. SUBJ 01/03: Remains intubated sedated but purposefully moving all extremities. Gets agitated on sedation hold. We'll proceed with spontaneous breathing trial and possible extubation. Also consult pulmonology for extensive nodular pulmonary infiltrates. Start Unasyn for aspiration pneumonia Psychiatry specialist Notes: On the psychiatric evaluation today patient is oppositional, irritable, resistant to the psychiatric evaluation. Patient has an elevated mood, yelling and screaming frequently, could become restless and agitated, but he is redirectable. Patient persistently minimized his recent suicidal attempt stated that he doesn't remember had no memories of his life in last hours. He denies using alcohol or illicit drugs. As per collateral information from his last psychiatric hospitalization in 2014 in [facility], she carry psychiatric history bipolar disorder, noncompliant with medications, has history of very lethal suicide attempts in the past. Due to lethality of recent suicidal attempt, past psychiatric history and evidence symptoms of krista , patient is psychiatric admission for stabilization. Patient is to remain with a sitter in the medical floor. Transfer to psychiatry as soon as patient is medically stable. No psychotropics will be started at this moment. Will order Haldol 5 mg every 8 hours when necessary aggressive behavior and agitation with Ativan 2 mg every 8 hours when necessary aggressive behavior and agitation. Extensive support, motivation and psychoeducation provided. Case discussed with primary medical team and nurse in charge. as per Doctor Amish Simental. Admitted to Psychiatric unit and asked for Hospitalist follow up he was seen in his bedroom and due to EF of 20-25% with Dilated Left ventricle asked for Cardiology consult performed and tax services specialist asked for Telemetry floor admitted then by Medicine and consulted to psychiatry specialist and Cardiology to continue his care. Seen in his bedroom and discussed with his Mother, Sister and Brother in law, discussed with tax services specialist Doctor Ezra Dorado the patient will receive STEFANI inhibitor, Carvedilol, and Life Vest and will follow as outpatient, once cleared by Cardiology will continue with Psychiatry specialist. Review of Systems Constitutional: DENIES: Fever, Chills, Change in appetite Endocrine: DENIES: Heat/cold intolerance Eyes: DENIES: Blurred vision, Eye pain Except as stated in HPI: all other systems reviewed are Neg Past Family Social History Past Medical History No previous Medical history Past Surgical History No previous Surgical history Reported Medications Reported Meds & Active Scripts Active Tylenol (Acetaminophen) 325 Mg Tab 650 Mg PO Q6H PRN 5 Days Senna Plus 8.6-50 mg (Sennosides-Docusate Sodium) 8.6 Mg-50 Mg Tab 2 Tab PO BID 5 Days Eq Milk of Magnesia (Magnesium Hydroxide) 400 Mg/5 Ml Shirley 30 Ml PO HS 5 Days Geodon Inj (Ziprasidone) 20 Mg/Ml (Final Concentration) Inj 10 Mg IM Q12HR PRN 3 Days Quetiapine (Quetiapine Fumarate) 100 Mg Tab 100 Mg PO Q8HR 3 Days Haldol Inj (Haloperidol Lactate) 5 Mg/Ml Inj 4 Mg IM Q6H PRN 3 Days Allergies: Coded Allergies: No Known Allergies (Unverified , 01/02/17) Active Ordered Medications Current Medications Medications (Trade) Dose Ordered Sig/Mason Route Start Time Stop Time Status Last Admin (NS Flush) 2 ml UNSCH PRN IV FLUSH 01/05/17 19:15 (NS Flush) 2 ml BID IV FLUSH 01/05/17 21:00 01/05/17 20:13 (Tylenol) 650 mg Q4H PRN PO 01/05/17 19:15 (Zofran Inj) 4 mg Q6H PRN IVP 01/05/17 19:15 (Narcan Inj) 0.4 mg UNSCH PRN IV PUSH 01/05/17 19:15 (Chiquita-Colace) 1 tab BID PO 01/05/17 21:00 (Milk Of Magnesia Liq) 30 ml Q12H PRN PO 01/05/17 19:15 (Senokot) 17.2 mg Q12H PRN PO 01/05/17 19:15 (Dulcolax Supp) 10 mg DAILY PRN RECTAL 01/05/17 19:15 (Lactulose Liq) 30 ml DAILY PRN PO 01/05/17 19:15 (Haldol Inj) 4 mg Q6H PRN IM 01/05/17 19:15 (SEROquel) 100 mg Q8HR PO 01/05/17 22:00 01/06/17 05:47 (Geodon Inj) 10 mg Q12H PRN IM 01/05/17 19:15 (Habitrol 21 Mg Patch.24 Hr) 1 patch DAILY T-DERMAL 01/06/17 09:00 Miscellaneous Information 1 DAILY T-DERMAL 01/06/17 09:00 Family History Asked and negative Social History Substance abuse, and Tobacco dependence. Physical Exam Vital Signs Vital Signs Date Time Temp Pulse Resp B/P (MAP) Pulse Ox O2 Delivery O2 Flow Rate FiO2 01/06/17 08:00 97.9 57 18 113/58 (76) 97 01/06/17 04:00 Room Air 01/06/17 04:00 97.4 70 16 108/66 (80) 97 01/06/17 00:00 Room Air 01/05/17 22:00 97.7 76 18 114/56 (75) 97 01/05/17 20:00 75 01/05/17 20:00 Room Air 01/05/17 20:00 98.2 79 18 124/76 (92) 98 Physical Exam GENERAL: No acute distress. SKIN: thrasher of the hanging in his neck. HEAD: Normocephalic. No evidence of trauma. EYES: Pupils equal and round. No scleral icterus. No injection or drainage. ENT: No nasal bleeding or discharge. Mucous membranes pink and moist. NECK: Trachea midline. No definite obvious ligature thrasher or bruising. No crepitus. CARDIOVASCULAR: Regular rate and rhythm. systolic murmur present. RESPIRATORY: No accessory muscle use. Clear to auscultation. Breath sounds equal bilaterally. GASTROINTESTINAL: Abdomen soft, non-tender, nondistended. Hepatic and splenic margins not palpable. MUSCULOSKELETAL: No obvious deformities. No clubbing. No cyanosis. No edema. Laboratory Laboratory Tests Test 01/06/17 07:15 White Blood Count 7.6 Red Blood Count 4.66 Hemoglobin 14.4 Hematocrit 42.0 Mean Corpuscular Volume 90.1 Mean Corpuscular Hemoglobin 30.9 Mean Corpuscular Hemoglobin Concent 34.3 Red Cell Distribution Width 12.6 Platelet Count 172 Mean Platelet Volume 9.8 Neutrophils (%) (Auto) 67.3 Lymphocytes (%) (Auto) 19.8 Monocytes (%) (Auto) 9.3 Eosinophils (%) (Auto) 3.0 Basophils (%) (Auto) 0.6 Neutrophils # (Auto) 5.1 Lymphocytes # (Auto) 1.5 Monocytes # (Auto) 0.7 Eosinophils # (Auto) 0.2 Basophils # (Auto) 0.0 CBC Comment DIFF FINAL Differential Comment Blood Urea Nitrogen 9 Creatinine 0.77 Random Glucose 102 Total Protein 6.5 Albumin 3.3 Calcium Level 8.8 Alkaline Phosphatase 69 Aspartate Amino Transf (AST/SGOT) 45 Alanine Aminotransferase (ALT/SGPT) 36 Total Bilirubin 0.7 Sodium Level 138 Potassium Level 4.1 Chloride Level 108 Carbon Dioxide Level 26.2 Anion Gap 4 Estimat Glomerular Filtration Rate 123 Result Diagram: 01/06/1715 01/06/17 0715 Caprini VTE Risk Assessment Caprini VTE Risk Assessment: Mod/High Risk (score >= 2) Caprini Risk Assessment Model Point Value = 1 Point Value = 2 Point Value = 3 Point Value = 5 Age 41-60 Minor surgery BMI > 25 kg/m2 Swollen legs Varicose veins or History of unexplained or recurrent spontaneous Oral contraceptives or hormone replacement Sepsis (< 1 month) Serious lung disease, including pneumonia (< 1 month) Abnormal pulmonary function Acute myocardial infarction Congestive heart failure (< 1 month) History of inflammatory bowel disease Medical patient at bed rest Age 61-74 Arthroscopic surgery Major open surgery (> 45 min) Laparoscopic surgery (> 45 min) Malignancy Confined to bed (> 72 hours) Immobilizing plaster cast Central venous access Age >= 75 History of VTE Family history of VTE Factor V Leiden Prothrombin [id number] Lupus anticoagulant Anticardiolipin antibodies Elevated serum homocysteine Heparin-induced thrombocytopenia Other congenital or acquired thrombophilia Stroke (< 1 month) Elective arthroplasty Hip, pelvis, or leg fracture Acute spinal cord injury (< 1 month) Prophylaxis Regimen Total Risk Factor Score Risk Level Prophylaxis Regimen 0-1 Low Early ambulation 2 Moderate Order ONE of the following: *Sequential Compression Device (SCD) *Heparin 5000 units SQ BID 3-4 Higher Order ONE of the following medications: *Heparin 5000 units SQ TID *Enoxaparin/Lovenox 40 mg SQ daily (WT < 150 kg, CrCl > 30 mL/min) *Enoxaparin/Lovenox 30 mg SQ daily (WT < 150 kg, CrCl > 10-29 mL/min) *Enoxaparin/Lovenox 30 mg SQ BID (WT < 150 kg, CrCl > 30 mL/min) AND/OR *Sequential Compression Device (SCD) 5 or more Highest Order ONE of the following medications: *Heparin 5000 units SQ TID (Preferred with Epidurals) *Enoxaparin/Lovenox 40 mg SQ daily (WT < 150 kg, CrCl > 30 mL/min) *Enoxaparin/Lovenox 30 mg SQ daily (WT < 150 kg, CrCl > 10-29 mL/min) *Enoxaparin/Lovenox 30 mg SQ BID (WT < 150 kg, CrCl > 30 mL/min) AND *Sequential Compression Device (SCD) Assessment and Plan Assessment and Plan 1. Attempted Suicide by hanging appeared in ER critically ill and agitated, He was intubated for agitation, and hypoxia. It was difficult to obtain any vital signs prior to intubation because of his violent thrashing. Patient was admitted to the ICU to the trauma service. Chest x-ray shows what appears to be pulmonary edema. Asphyxiation by hanging 2. Bilateral pulmonary infiltrates with possible pulmonary edema. Improving on new CXR 3. Probable aspiration were discontinued antibiotics in ICU. 4. Bipolar Disorder followed in Psychiatric unit. 5. Heart Failure systolic EF 20-25%. stable. at this time I think due to Moderate to severely dilated left Ventricle, this is a chronic pathology, will get tax services specialist consult to prepare the patient for probable defibrillator placement if the patient is considered candidate for this procedure, seen by tax services specialist doctor Ezra Dorado and recommended to transfer to Telemetry unit started on STEFANI inhibitors and Carvedilol and Live Vest after this is done he may continue with Psychiatry specialist for inpatient admission. consulted Cardiology and Psychiatry Sitter DVT prophylaxis at this time the patient showed me some tissue with blood after coughing will follow not recommended chemical anticoagulation and the patient is active in his bedroom. Code Status Full Code. Discussed Condition With Patient and Nurse. his Mother, his Sister and Brother in law, all questions answered to the best of my abilities. Physician Certification 2 Midnight Certification Type: Continued Stay Order for Inpatient Services The services are ordered in accordance with Medicare regulations or non- Medicare payer requirements, as applicable. In the case of services not specified as inpatient-only, they are appropriately provided as inpatient services in accordance with the 2-midnight benchmark. Estimated LOS (days): 5 days is the estimated time the patient will need to remain in the hospital, assuming treatment plan goals are met and no additional complications. Post-Hospital Plan: Not yet determined Berhane Hurt MD Jan 06, 2017 10:52
--- NOTE | 2017-01-06 11:25 | PD.CARD.PN ---
Subjective Subjective Remarks Note; my full consult note was dictated yesterday (see past visits) Denies any cardiac complaints, a little bit agitated Objective Medications Administered Medications Medications (Trade) Dose Ordered Sig/Mason Route PRN Reason Start Time Stop Time Status Last Admin Dose Admin Sodium Chloride (NS Flush) 2 ml BID IV FLUSH 01/05/17 21:00 01/05/17 20:13 Quetiapine Fumarate (SEROquel) 100 mg Q8HR PO 01/05/17 22:00 01/06/17 05:47 Vital Signs / I&O Vital Signs Date Time Temp Pulse Resp B/P (MAP) Pulse Ox O2 Delivery O2 Flow Rate FiO2 01/06/17 08:00 97.9 57 18 113/58 (76) 97 01/06/17 04:00 Room Air 01/06/17 04:00 97.4 70 16 108/66 (80) 97 01/06/17 00:00 Room Air 01/05/17 22:00 97.7 76 18 114/56 (75) 97 01/05/17 20:00 75 01/05/17 20:00 Room Air 01/05/17 20:00 98.2 79 18 124/76 (92) 98 I/O 01/05/17 01/05/17 01/05/17 01/06/17 01/06/17 01/06/17 07:00 15:00 23:00 07:00 15:00 23:00 Intake Total 440 ml Output Total 250 ml Balance 190 ml Intake Oral 440 ml Output Urine Total 250 ml # Bowel Movements 3 Physical Exam GENERAL: This is a well-nourished, well-developed patient, in no apparent distress. CARDIOVASCULAR: Regular rate and rhythm without murmurs, gallops, or rubs. RESPIRATORY: Clear to auscultation. Breath sounds equal bilaterally. No wheezes , rales, or rhonchi. GASTROINTESTINAL: Abdomen soft, non-tender, nondistended. Normal active bowel sounds MUSCULOSKELETAL: Extremities without clubbing, cyanosis, or edema. NEURO: Alert & Oriented x4 to person, place, time, situation. Moves all ext x4 Laboratory Laboratory Tests Test 01/06/17 07:15 White Blood Count 7.6 TH/MM3 Red Blood Count 4.66 MIL/MM3 Hemoglobin 14.4 GM/DL Hematocrit 42.0 % Mean Corpuscular Volume 90.1 FL Mean Corpuscular Hemoglobin 30.9 PG Mean Corpuscular Hemoglobin Concent 34.3 % Red Cell Distribution Width 12.6 % Platelet Count 172 TH/MM3 Mean Platelet Volume 9.8 FL Neutrophils (%) (Auto) 67.3 % Lymphocytes (%) (Auto) 19.8 % Monocytes (%) (Auto) 9.3 % Eosinophils (%) (Auto) 3.0 % Basophils (%) (Auto) 0.6 % Neutrophils # (Auto) 5.1 TH/MM3 Lymphocytes # (Auto) 1.5 TH/MM3 Monocytes # (Auto) 0.7 TH/MM3 Eosinophils # (Auto) 0.2 TH/MM3 Basophils # (Auto) 0.0 TH/MM3 CBC Comment DIFF FINAL Differential Comment Blood Urea Nitrogen 9 MG/DL Creatinine 0.77 MG/DL Random Glucose 102 MG/DL Total Protein 6.5 GM/DL Albumin 3.3 GM/DL Calcium Level 8.8 MG/DL Alkaline Phosphatase 69 U/L Aspartate Amino Transf (AST/SGOT) 45 U/L Alanine Aminotransferase (ALT/SGPT) 36 U/L Total Bilirubin 0.7 MG/DL Sodium Level 138 MEQ/L Potassium Level 4.1 MEQ/L Chloride Level 108 MEQ/L Carbon Dioxide Level 26.2 MEQ/L Anion Gap 4 MEQ/L Estimat Glomerular Filtration Rate 123 ML/MIN Imaging Last Impressions Chest X-Ray 01/06/17 0700 Signed Impressions: Service Date/Time: Friday, January 06, 2017 09:04 - CONCLUSION: Improved appearance of the lungs compared to the prior 2 examinations. There may be a mild amount of residual airspace opacity in the midlung zones bilaterally. No pleural effusion is present. Brando Haywood MD Assessment and Plan Problem List: (1) Cardiomyopathy ICD Codes: I42.9 - Cardiomyopathy, unspecified Plan: Likely due to acute hypoxia from hanging, will plan for a nuc stress today, on akhil/bb, he agrees to live-vest (2) Hanging ICD Codes: T71.164A - Asphyxiation due to hanging, undetermined, initial encounter Plan: psych on board (3) Troponin level elevated ICD Codes: R74.8 - Abnormal levels of other serum enzymes Plan: see above Assessment and Plan Discussed all of this at length w/ his family members Ezra Dorado MD Jan 06, 2017 11:25
[2017-01-06] MEDS ORDERED: PILL SPLITTER OTHER PRN (11:30)
[2017-01-06 12:00] VITALS: BP 117/58; PULSE 84; RESP 18; TEMP 98; O2SAT 100
[2017-01-06] MEDS: DOCUSATE SODIUM 50 MG/SENNA 8.6 MG TAB PO SCH ×2 (12:18→21:06)
[2017-01-06] MEDS: NICOTINE 21 MG/24 HR PATCH T-DERMAL SCH (12:18)
[2017-01-06] MEDS: CARVEDILOL 3.125 MG TAB PO SCH ×2 (12:25→21:06)
[2017-01-06] MEDS: LISINOPRIL 5 MG TAB PO SCH (12:25)
[2017-01-06] MEDS: SODIUM CHLORIDE 0.9% FLUSH 10 ML FLUSH IV FLUSH SCH ×2 (12:26→21:06)
[2017-01-06 20:00] VITALS: BP 126/72; PULSE 69; PULSE 89; RESP 16; TEMP 98.2; O2SAT 97
[2017-01-07] VITALS (8 sets, daily range): BP systolic 102–125; BP diastolic 55–79; PULSE 48–58; RESP 16–20; TEMP 97.4–97.8; O2SAT 97–100
[2017-01-07] MEDS: QUEtiapine FUMARATE 100 MG TAB PO SCH ×3 (05:44→21:34)
[2017-01-07] MEDS: LISINOPRIL 5 MG TAB PO SCH (08:59)
[2017-01-07] MEDS: DOCUSATE SODIUM 50 MG/SENNA 8.6 MG TAB PO SCH (08:59)
[2017-01-07] MEDS: SODIUM CHLORIDE 0.9% FLUSH 10 ML FLUSH IV FLUSH SCH ×2 (08:59→21:34)
[2017-01-07] MEDS: CARVEDILOL 3.125 MG TAB PO SCH ×2 (08:59→21:34)
[2017-01-07] MEDS: REMOVE OLD PATCH T-DERMAL SCH (09:00)
[2017-01-07] MEDS: NICOTINE 21 MG/24 HR PATCH T-DERMAL SCH (09:00)
[2017-01-07] MEDS ORDERED: REGADENOSON INJ 0.4 MG/5 ML SYR ONE (11:02)
--- NOTE | 2017-01-07 13:10 | HHI.PR ---
Subjective Remarks Follow-up attempted suicide by hanging/cardiomyopathy/chronic systolic CHF 01/07/17-patient seen and examined, very upset that he is still in hospital and requesting to be seen by a psychiatrist. Denies any chest pain or shortness of breath. Objective Vitals Vital Signs Date Time Temp Pulse Resp B/P (MAP) Pulse Ox O2 Delivery O2 Flow Rate FiO2 01/07/17 08:00 97.6 55 16 105/55 (72) 98 01/07/17 08:00 Room Air 01/07/17 04:00 97.6 51 20 108/58 (75) 100 01/07/17 04:00 Room Air 01/07/17 00:00 97.6 53 20 102/58 (73) 98 01/07/17 00:00 Room Air 01/06/17 20:00 98.2 69 16 126/72 (90) 97 01/06/17 20:00 Room Air 01/06/17 20:00 89 I/O 01/06/17 01/06/17 01/06/17 01/07/17 01/07/17 01/07/17 07:00 15:00 23:00 07:00 15:00 23:00 Intake Total 440 ml 320 ml Output Total 250 ml Balance 190 ml 320 ml Intake Oral 440 ml 320 ml Output Urine Total 250 ml # Voids 2 # Bowel Movements 3 Result Diagram: 01/06/17 0715 01/06/17 0715 Imaging Last Impressions Chest X-Ray 01/06/17 0700 Signed Impressions: Service Date/Time: Friday, January 06, 2017 09:04 - CONCLUSION: Improved appearance of the lungs compared to the prior 2 examinations. There may be a mild amount of residual airspace opacity in the midlung zones bilaterally. No pleural effusion is present. Brando Haywood MD Objective Remarks GENERAL: NAD SKIN: Warm and dry. HEAD: Normocephalic. EYES: No scleral icterus. No injection or drainage. NECK: Supple, trachea midline. No JVD or lymphadenopathy. Evidence of wound left neck from Attempted hanging CARDIOVASCULAR: Regular rate and rhythm without murmurs, gallops, or rubs. RESPIRATORY: Breath sounds equal bilaterally. No accessory muscle use. GASTROINTESTINAL: Abdomen soft, non-tender, nondistended. MUSCULOSKELETAL: No cyanosis, or edema. BACK: Nontender without obvious deformity. No CVA tenderness. A/P Problem List: (1) Cardiomyopathy ICD Code: I42.9 - Cardiomyopathy, unspecified (2) Troponin level elevated ICD Code: R74.8 - Abnormal levels of other serum enzymes (3) Bipolar disorder ICD Code: F31.9 - Bipolar disorder, unspecified (4) Suicidal ideation ICD Code: R45.851 - Suicidal ideations Status: Chronic (5) Hanging ICD Code: T71.164A - Asphyxiation due to hanging, undetermined, initial encounter (6) Adjustment disorder with mixed disturbance of emotions and conduct ICD Code: F43.25 - Adjustment disorder with mixed disturbance of emotions and conduct Assessment and Plan 26-year-old man with Attempted Suicide by hanging appeared Bipolar disorder Management per psychiatry Continue Agosto act, Seroquel Sitter in the room Bilateral pulmonary infiltrates with possible pulmonary edema. Improving on new CXR Heart Failure systolic EF 20-25%. Continue STEFANI inhibitors and Carvedilol and Live Vest Appreciate input from psychiatry Awaiting formal report from Lexiscan stress test Tobacco abuse Tobacco cessation counseling provided Continue with nicotine patch Problem Qualifiers (1) Cardiomyopathy: Qualified Codes: I42.9 - Cardiomyopathy, unspecified Stephen Ledesma MD Jan 07, 2017 13:10
--- NOTE | 2017-01-07 14:56 | RADRPT ---
EXAM DATE/TIME: 01/07/2017 09:55 [place] COMPARISON: CHEST PA & LAT, January 06, 2017, 9:04. INDICATIONS : Elevated troponins. DOSE: 27.4 mCi Tc99m Myoview at stress. 8.4 mCi Tc99m Myoview at rest. 0.4 mg Lexiscan STRESS SYMPTOMS: Shortness of breath, nausea, chest tightness. EJECTION FRACTION: 46% MEDICAL HISTORY : None SURGICAL HISTORY : None. ENCOUNTER: Initial ACUITY: 1 day PAIN SCALE: 0/10 LOCATION: chest TECHNIQUE: The patient underwent pharmacologic stress with infusion of prescribed dose. Continuous ECG tracing was monitored during stress. Gated SPECT imaging was performed after stress and conventional SPECT i maging was performed at rest. The examination was performed on a SPECT/CT scanner, both attenuation and non-corrected datasets were reviewed. FINDINGS: DISTRIBUTION: The maximum perfused segment at stress is in the inferior wall. PERFUSION STUDY: There is a small size mild severity reversible defect involving the midportion of the anterior wall. Ischemia is not excluded. GATED STUDY: There is mild global hypokinesis CONCLUSION: 1. Small size mild severity reversible defect involving the midportion of the anterior wall ischemia is not excluded. CT angiography is recommended for further evaluation if clinically indicated. RISK CATEGORY: Low (<1% Annual Mortality Rate) Otto Johnson MD on January 07, 2017 at 14:45 Board Certified Radiologist. This report was verified electronically.
[2017-01-07] MEDS ORDERED: DEFIB EXTERNAL (15:12)
[2017-01-08 04:20] VITALS: BP 97/52; PULSE 47; RESP 16; TEMP 97.5; O2SAT 98
[2017-01-08] MEDS: QUEtiapine FUMARATE 100 MG TAB PO SCH (05:38)
[2017-01-08 08:00] VITALS: BP 102/59; PULSE 53; RESP 18; TEMP 98.6; O2SAT 98
[2017-01-08 08:20] VITALS: PULSE 80
[2017-01-08] MEDS: LISINOPRIL 5 MG TAB PO SCH (08:57)
[2017-01-08] MEDS: CARVEDILOL 3.125 MG TAB PO SCH (08:58)
[2017-01-08] MEDS: REMOVE OLD PATCH T-DERMAL SCH (08:58)
[2017-01-08] MEDS: NICOTINE 21 MG/24 HR PATCH T-DERMAL SCH (08:58)
[2017-01-08] MEDS: SODIUM CHLORIDE 0.9% FLUSH 10 ML FLUSH IV FLUSH SCH (08:58)
--- NOTE | 2017-01-08 10:01 | HHI.PR ---
Subjective Remarks Follow-up attempted suicide by hanging/cardiomyopathy/chronic systolic CHF 01/07/17-patient seen and examined, very upset that he is still in hospital and requesting to be seen by a psychiatrist. Denies any chest pain or shortness of breath. 01/08/17-patient seen and examined, states he had a good night sleep. vitals stable. Sitter in the room Objective Vitals Vital Signs Date Time Temp Pulse Resp B/P (MAP) Pulse Ox O2 Delivery O2 Flow Rate FiO2 01/08/17 08:20 Room Air 01/08/17 08:20 80 01/08/17 08:00 98.6 53 18 102/59 (73) 98 01/08/17 04:20 97.5 47 16 97/52 (67) 98 01/08/17 04:00 Room Air 01/08/17 00:00 Room Air 01/07/17 23:30 97.8 48 16 110/57 (74) 98 01/07/17 21:43 97.5 58 16 104/65 (78) 97 01/07/17 20:44 58 01/07/17 20:00 Room Air 01/07/17 16:00 97.4 55 20 111/55 (73) 98 01/07/17 12:00 97.4 53 20 125/79 (94) 98 I/O 01/07/17 01/07/17 01/07/17 01/08/17 01/08/17 01/08/17 07:00 15:00 23:00 07:00 15:00 23:00 Intake Total 320 ml 120 ml 400 ml 240 ml Balance 320 ml 120 ml 400 ml 240 ml Intake Oral 320 ml 120 ml 400 ml 240 ml # Voids 2 4 1 # Bowel Movements 1 0 Result Diagram: 01/06/1715 01/06/1715 Imaging Last Impressions Myocardial Perfusion Scan Nuc Med 01/07/17 0000 Signed Impressions: Service Date/Time: Saturday, January 07, 2017 09:55 - CONCLUSION: 1. Small size mild severity reversible defect involving the midportion of the anterior wall ischemia is not excluded. CT angiography is recommended for further evaluation if clinically indicated. RISK CATEGORY: Low (<1%% Annual Mortality Rate) Otto Johnson MD Chest X-Ray 01/06/17 0700 Signed Impressions: Service Date/Time: Friday, January 06, 2017 09:04 - CONCLUSION: Improved appearance of the lungs compared to the prior 2 examinations. There may be a mild amount of residual airspace opacity in the midlung zones bilaterally. No pleural effusion is present. Brando Haywood MD Objective Remarks GENERAL: NAD SKIN: Warm and dry. HEAD: Normocephalic. EYES: No scleral icterus. No injection or drainage. NECK: Supple, trachea midline. No JVD or lymphadenopathy. Evidence of wound left neck from Attempted hanging CARDIOVASCULAR: Regular rate and rhythm without murmurs, gallops, or rubs. RESPIRATORY: Breath sounds equal bilaterally. No accessory muscle use. GASTROINTESTINAL: Abdomen soft, non-tender, nondistended. MUSCULOSKELETAL: No cyanosis, or edema. BACK: Nontender without obvious deformity. No CVA tenderness. A/P Problem List: (1) Cardiomyopathy ICD Code: I42.9 - Cardiomyopathy, unspecified (2) Troponin level elevated ICD Code: R74.8 - Abnormal levels of other serum enzymes (3) Bipolar disorder ICD Code: F31.9 - Bipolar disorder, unspecified (4) Suicidal ideation ICD Code: R45.851 - Suicidal ideations Status: Chronic (5) Hanging ICD Code: T71.164A - Asphyxiation due to hanging, undetermined, initial encounter (6) Adjustment disorder with mixed disturbance of emotions and conduct ICD Code: F43.25 - Adjustment disorder with mixed disturbance of emotions and conduct Assessment and Plan 26-year-old man with Attempted Suicide by hanging appeared Bipolar disorder Management per psychiatry Continue Agosto act, Seroquel Sitter in the room Bilateral pulmonary infiltrates with possible pulmonary edema. Improving on new CXR Heart Failure systolic EF 20-25%. Continue STEFANI inhibitors and Carvedilol and Live Vest ordered yesterday Appreciate input from psychiatry Nuclear stress test negative for ischemia 01/07/17 Tobacco abuse Tobacco cessation counseling provided Continue with nicotine patch Patient is medically stable to be transferred to med-psych Problem Qualifiers (1) Cardiomyopathy: Qualified Codes: I42.9 - Cardiomyopathy, unspecified Stephen Ledesma MD Jan 08, 2017 10:01
[2017-01-08 12:00] VITALS: BP 112/76; PULSE 62; RESP 18; TEMP 97.4; O2SAT 100
--- NOTE | 2017-01-30 09:33 | HHI.DS ---
Discharge Summary Admission Date Jan 05, 2017 at 18:48 Discharge Date: Jan 08, 2017 Admitting Diagnosis (1) Cardiomyopathy ICD Code: I42.9 - Cardiomyopathy, unspecified (2) Troponin level elevated ICD Code: R74.8 - Abnormal levels of other serum enzymes (3) Bipolar disorder ICD Code: F31.9 - Bipolar disorder, unspecified (4) Suicidal ideation ICD Code: R45.851 - Suicidal ideations Status: Chronic (5) Hanging ICD Code: T71.164A - Asphyxiation due to hanging, undetermined, initial encounter (6) Adjustment disorder with mixed disturbance of emotions and conduct ICD Code: F43.25 - Adjustment disorder with mixed disturbance of emotions and conduct Procedures none Brief History - From Admission Emergency Medicine Notes: Patient admitted to this facility on 01/02/17 to Intensive Care unit after this 26 year old man came to ER with suicide attempt reportedly hanging. By EMS report, patient was found by his mom hanging from a ceiling fan with the dog leash. Reportedly family had to cut him down. When he cut down he fell and hit his head on the back of the table. He's been combative and agitated with EMS. Striper Machine Note: 26-year-old male with past medical history of depression and prior suicide attempt who presented to [facility] emergency department as a trauma alert following hanging. GCS was 7 prehospital. Blood glucose was 121. He received Ativan 2 mg IV and 900 ML's of NS prehospital. GCS was reportedly 5 upon arrival. He was intubated by Dr. Duke after receiving etomidate 20 mg IV and succinylcholine 100 mg IV. He is on a propofol drip. Workup has included: CT brain - report states possible decreased attenuation in the left anterior mcclellan radiata characteristic of focal white matter disease. CT C-spine -no fracture CTA neck - negative for dissection Chest x-ray - satisfactory endotracheal tube position. Bilateral airspace disease CT chest - right basilar atelectasis. Old posterior rib fracture Review of systems cannot be obtained as patient has altered mental status and is intubated. Family was here earlier however unfortunately did not provide any contact information so I am also unable to obtain past medical history/past surgical history/family history/ social history/medications. SUBJ 01/03: Remains intubated sedated but purposefully moving all extremities. Gets agitated on sedation hold. We'll proceed with spontaneous breathing trial and possible extubation. Also consult pulmonology for extensive nodular pulmonary infiltrates. Start Unasyn for aspiration pneumonia Psychiatry specialist Notes: On the psychiatric evaluation today patient is oppositional, irritable, resistant to the psychiatric evaluation. Patient has an elevated mood, yelling and screaming frequently, could become restless and agitated, but he is redirectable. Patient persistently minimized his recent suicidal attempt stated that he doesn't remember had no memories of his life in last hours. He denies using alcohol or illicit drugs. As per collateral information from his last psychiatric hospitalization in 2014 in [facility], she carry psychiatric history bipolar disorder, noncompliant with medications, has history of very lethal suicide attempts in the past. Due to lethality of recent suicidal attempt, past psychiatric history and evidence symptoms of krista , patient is psychiatric admission for stabilization. Patient is to remain with a sitter in the medical floor. Transfer to psychiatry as soon as patient is medically stable. No psychotropics will be started at this moment. Will order Haldol 5 mg every 8 hours when necessary aggressive behavior and agitation with Ativan 2 mg every 8 hours when necessary aggressive behavior and agitation. Extensive support, motivation and psychoeducation provided. Case discussed with primary medical team and nurse in charge. as per Doctor Amish Simental. Admitted to Psychiatric unit and asked for Hospitalist follow up he was seen in his bedroom and due to EF of 20-25% with Dilated Left ventricle asked for Cardiology consult performed and charge entry specialist asked for Telemetry floor admitted then by Medicine and consulted to psychiatry specialist and Cardiology to continue his care. Seen in his bedroom and discussed with his Mother, Sister and Brother in law, discussed with charge entry specialist Doctor Ezra Dorado the patient will receive STEFANI inhibitor, Carvedilol, and Life Vest and will follow as outpatient, once cleared by Cardiology will continue with Psychiatry specialist. PE at Discharge GENERAL: NAD SKIN: Warm and dry. HEAD: Normocephalic. EYES: No scleral icterus. No injection or drainage. NECK: Supple, trachea midline. No JVD or lymphadenopathy. Evidence of wound left neck from Attempted hanging CARDIOVASCULAR: Regular rate and rhythm without murmurs, gallops, or rubs. RESPIRATORY: Breath sounds equal bilaterally. No accessory muscle use. GASTROINTESTINAL: Abdomen soft, non-tender, nondistended. MUSCULOSKELETAL: No cyanosis, or edema. BACK: Nontender without obvious deformity. No CVA tenderness. Hospital Course Attempted Suicide by hanging appeared Bipolar disorder Management per psychiatry Continue Agosto act, Seroquel Bilateral pulmonary infiltrates with possible pulmonary edema. Improving on new CXR Heart Failure systolic EF 20-25%. Continue STEFANI inhibitors and Carvedilol and Live Vest ordered yesterday Appreciate input from psychiatry Nuclear stress test negative for ischemia 01/07/17 Tobacco abuse Tobacco cessation counseling provided Continue with nicotine patch Pt Condition on Discharge: Stable Discharge Disposition: Disc to Psych Care Fac Discharge Time: <= 30 minutes Discharge Instructions DIET: Follow Instructions for: Heart Healthy Diet Activities you can perform: Regular-No Restrictions Stephen Ledesma MD Jan 30, 2017 09:33
== END 2017-01-08 13:56 | DRG 923 ==
LOC: N04B 18:48 → N04A 01-06 15:39
PROVIDERS: ADMIT Hospitalist; ATTEND Hospitalist
DX: T71.162A Asphyxiation due to hanging, intentional self-harm, initial encounter (principal); I42.9 Cardiomyopathy, unspecified; I50.22 Chronic systolic (congestive) heart failure; J98.11 Atelectasis; F31.9 Bipolar disorder, unspecified; Z91.14 Patient's other noncompliance with medication regimen; W19.XXXA Unspecified fall, initial encounter; F17.200 Nicotine dependence, unspecified, uncomplicated; F43.25 Adjustment disorder with mixed disturbance of emotions and conduct; R74.8 Abnormal levels of other serum enzymes
CPT/HCPCS: 71020; 78452; 80053; 85025; 93017; A9502; J2785

== ENCOUNTER 2017-01-08 12:25 | Inpatient (IN) | payer OTHER, MEDICARE ==
[~2017-01-08] VITALS: Ht 175.3 cm; Wt 63.3 kg
[~2017-01-08 12:25] MED LIST changes: +DEFIB EXTERNAL
--- NOTE | 2017-01-08 15:08 | PD.CARD.PN ---
Subjective Subjective Remarks Feeling great, no sx. Objective Medications see yesterday, not copying over due to transfer to [facility] Vital Signs / I&O vitals stable (part of last admission) Physical Exam GENERAL: This is a well-nourished, well-developed patient, in no apparent distress. CARDIOVASCULAR: Regular rate and rhythm without murmurs, gallops, or rubs. RESPIRATORY: Clear to auscultation. Breath sounds equal bilaterally. No wheezes , rales, or rhonchi. GASTROINTESTINAL: Abdomen soft, non-tender, nondistended. Normal active bowel sounds MUSCULOSKELETAL: Extremities without clubbing, cyanosis, or edema. NEURO: Alert & Oriented x4 to person, place, time, situation. Moves all ext x4 Assessment and Plan Problem List: (1) Cardiomyopathy ICD Codes: I42.9 - Cardiomyopathy, unspecified Plan: on akhil/bb; may be improving by nuc stress, limited echo today; life vest if not improved (2) Suicidal ideation ICD Codes: R45.851 - Suicidal ideations Status: Chronic (3) Hanging ICD Codes: T71.164A - Asphyxiation due to hanging, undetermined, initial encounter (4) Troponin level elevated ICD Codes: R74.8 - Abnormal levels of other serum enzymes Plan: nuc stress equivocal; cta cardiac ordered. Assessment and Plan will ask one of my partners to see tomorrow. Ezra Dorado MD Jan 08, 2017 15:08
[2017-01-08 15:10] VITALS: BP 112/57; PULSE 51; RESP 18; TEMP 98; O2SAT 98
[2017-01-08] MEDS: QUEtiapine FUMARATE 100 MG TAB PO SCH ×2 (17:30→21:09)
--- NOTE | 2017-01-08 17:30 | HHI.PYPN ---
Subjective Remarks Patient was seen today for psychiatric reevaluation, patient reports feeling much better, he denies depressive symptoms, patient seems to be very superficial avoidant about his recent suicidal attempt. Patient seems to be minimizing the circumstances and emotions behind suicidal attempt. He says that he became very overwhelmed and frustrated after an argument with his mother. He seems to be regrretful about his self harming behavior. At this moment he denies suicidal and homicidal ideation, he denies visual and auditory hallucinations. Patient is rory for safety in the medical floor. Oriented 3, compliant with medications, no agitation or aggressive behavior reported. Review of Systems Other No somatic complaints Objective Alert: Yes [place]: Person, Place, Situation Mood: Calm Affect: Appropriate Memory Intact: Immediate, Recent, Remote Hallucinations: Other (no hallucinations) Delusions: No Delusion Type: Other (no delusions) Suicidal: Ideation (denies SI) Homicidal: Ideation (denies HI) Insight/Judgment Fair Labs Test 01/08/17 15:20 Troponin I 0.15 NG/ML Vitals/IOs Vital Signs Date Time Temp Pulse Resp B/P (MAP) Pulse Ox O2 Delivery O2 Flow Rate FiO2 01/08/17 15:10 98.0 51 18 112/57 (75) 98 Assessment & Plan Problem List: (1) Bipolar disorder ICD Codes: F31.9 - Bipolar disorder, unspecified Assessment & Plan: The patient continues to be very superficial and avoidant about his recent suicidal attempt. To be admitted in psychiatry for stabilization and safety. We'll restart Seroquel 100 mg 3 times a day. Assessment & Plan Estimated LOS: days Justification for Cont. Inpt. Patient needs psychiatric hospitalization for stabilization and safety. Amish Simental MD Jan 08, 2017 17:30
[2017-01-08 18:00] VITALS: BP 119/62; PULSE 70; RESP 18; TEMP 98.2; O2SAT 98
[2017-01-08] MEDS ORDERED: PILL SPLITTER OTHER PRN (18:00)
[2017-01-08] MEDS: CARVEDILOL 3.125 MG TAB PO SCH (21:09)
[2017-01-09 05:51] VITALS: BP 112/73; PULSE 51; RESP 16; TEMP 97.3; O2SAT 99
[2017-01-09] MEDS: QUEtiapine FUMARATE 100 MG TAB PO SCH ×3 (05:56→20:45)
[2017-01-09] MEDS: CARVEDILOL 3.125 MG TAB PO SCH ×2 (09:00→20:44)
[2017-01-09] MEDS: LISINOPRIL 5 MG TAB PO SCH (09:00)
--- NOTE | 2017-01-09 12:25 | ECHRPT ---
Indication: ef assessment of chf CONCLUSIONS The left ventricular systolic function is normal with an estimated ejection fraction in the range of 60-65%. Normal left ventricular size. Wall thickness is normal. No regional wall motion abnormalities are present. BP: 119 / 62 HR: 70 Rhythm: Sinus MEASUREMENTS (Male / Female) Normal Values Technical Quality:Excellent 2D ECHO LV Diastolic Diameter PLAX 5.1 cm 4.2 - 5.9 / 3.9 - 5.3 cm LV Systolic Diameter PLAX 3.2 cm IVS Diastolic Thickness 0.8 cm 0.6 - 1.0 / 0.6 - 0.9 cm LVPW Diastolic Thickness 0.8 cm 0.6 - 1.0 / 0.6 - 0.9 cm LV Relative Wall Thickness 0.3 RV Internal Dim ED PLAX 2.4 cm LV Ejection Fraction MOD 4C 64.5 % LV Cardiac Index MOD 4C 2733.5 cm/minm LV Ejection Fraction 4C AL 67.3 % LV Cardiac Index 4C AL 2948.4 cm/minm FINDINGS LEFT VENTRICLE The left ventricular systolic function is normal with an estimated ejection fraction in the range of 60-65%. Normal left ventricular size. Wall thickness is normal. No regional wall motion abnormalities are present. Usman Guevara MD, FACC (Electronically Signed) Final Date:09 January 2017 12:24
--- NOTE | 2017-01-09 13:24 | HHI.HP ---
Provisional Diagnosis Admission Date Jan 08, 2017 at 13:58 Esopus I. Adjustment disorder with disturbance of conduct, history of bipolar disorder Esopus II. Unspecified personality disorder Certification of Person's Competence To Provide Express and Informed Consent I have personally examined Charles Foster , a person being served at [facility] on, Jan 09, 2017 13:16. Express and informed consent means consent voluntarily given in writing, by a competent person, after sufficient explanation and disclosure of the subject matter involved to enable the person to make a knowing and willful decision without any element of force, fraud, deceit, duress, or other form of constraint or coercion. This person is 18 years of age or older, is not now known to be incompetent to consent to treatment with a guardian advocate, and does not have a health care surrogate or proxy currently making medical treatment decisions. I have found this person to be one of the following: [X] Competent to provide express and informed consent, as defined above, for voluntary admission to this facility and is competent to provide express and informed consent for treatment. He/she has the consistent capacity to make well reasoned, willful, and knowing decisions concerning his or her medical or mental health treatment. The person fully and consistently understands the purpose of the admission for examination/placement and is fully capable of personally exercising all rights assured under [place] Incompetent to provide express and informed consent to voluntary admission, and this is incompetent to provide express and informed consent to treatment. The person must be transferred to involuntary status and a petition for a guardian advocate filed with the Circuit Court. [] Refusing to provide express and informed consent to voluntary admission but is competent to provide express and informed consent for treatment. The person must be discharged or transferred to involuntary status. Form shall be completed within 24 hours of a person's arrival at the receiving facility and filed in the clinical record of each person: 1. Admitted on a voluntary basis 2. Permitted to provide express and informed consent to his/her own treatment 3. Allowed to transfer from involuntary to voluntary status 4. Prior to permitting a person to consent to his or her own treatment after having been previously found incompetent to consent to treatment. History of Present Illness Capacity: Has Capacity HPI 01/03/2017 The patient is a 26-year-old man, homeless, unemployed, supported by [facility], with psychiatric history bipolar disorder, alcohol use disorder, multiple psychiatric hospitalizations, history of noncompliance with medications, multiple suicidal attempts, his last suicidal attempt was in June 28, 2014, patient [facility] in [place], what resulted in several fractures a lengthy hospitalization in ICU, this information was confirmed by [facility] psychiatrist in [facility]. At that moment patient was in a mixed manic/depressive status, was is paralyzed and Depakote 750 mg 3 times a day and Seroquel 150 mg at bedtime. He doesn't have any significant medical history, first time in [place], who presents emergency department after reportedly hanging. By EMS report, patient was found by his mom hanging from a ceiling fan with the dog leash. Reportedly family had to cut him down. When he cut down he fell and hit his head on the back of the table. Patient was very combative and agitated in the ER, was sedated and intubated. Consulted to psychiatry to assess manic behavior and suicidal attempt. On psychiatric evaluation today patient is found in his bed, very oppositional, irritable, with elevated mood. He states that he doesn't need to stay with any psychiatrist. He says that he is not here for psychiatric reason. He denies that he tried to commit suicide. She claims that he doesn't remember what happened taking in the last hours. He denies the use of drugs or alcohol. Patient has a rapid speech, at times disorganized and tangential, but redirectable. He also has a very labile mood crying often and yelling at nurses and at me.I contacted Dr. Fregoso in [facility], who told me that the patient has several previous suicidal attempts, some of them very lethal. Apparently patient has poor adherence to psychotropics. He has multiple psychiatric hospitalizations. One of his hospitalizations was due to a suicidal attempt by jumping off a building resulting in multiple traumatic lesions and lengthy hospitalization. 01/08/2017 Patient was seen today for psychiatric reevaluation, patient reports feeling much better, he denies depressive symptoms, patient seems to be very superficial avoidant about his recent suicidal attempt. Patient seems to be minimizing the circumstances and emotions behind suicidal attempt. He says that he became very overwhelmed and frustrated after an argument with his mother. He seems to be regretful about his self-harming behavior. At this moment he denies suicidal and homicidal ideation, he denies visual and auditory hallucinations. Patient is rory for safety in the medical floor. Oriented 3, compliant with medications, no agitation or aggressive behavior reported. 01/09/2017 the patient is a man, 26 years old, employed, domicile with mother, with psychiatric history of dementia and above, today on psychiatric reevaluation patient is found calm, cooperative, he stated that he feels ready to be discharged. Patient says that he has to go to work, he doesn't want to lose his job. Patient says that as long as he doesn't have an argument with his mother and she doesn't make derogatory comments begin seeing his verified. Patient says that his avoid confrontations, and he is aware how sensitive he could be to frustration and overwhelmeness. Patient reports improved mood, he denies anhedonia, he denies hopelessness, he denies hopelessness, he denies suicidal and homicidal ideation, he denies visual and auditory hallucinations. No paranoia, delusions, no krista, ideas of reference, no agitation or aggressive behavior reported or observed. He is oriented 3, no protrusion of consciousness, no attention deficit. Plan with his medications, nose and medical side effects. Review of Systems Constitutional: DENIES: Diaphoretic episodes, Fatigue, Fever, Weight gain, Weight loss, Chills, Dizziness, Change in appetite, Night Sweats Endocrine: DENIES: Heat/cold intolerance, Polydipsia, Polyuria, Polyphagia Eyes: DENIES: Blurred vision, Diplopia, Eye inflammation, Eye pain, Vision loss , Photosensitivity, Double Vision Ears, nose, mouth, throat: DENIES: Tinnitus, Hearing loss, Vertigo, Nasal discharge, Oral lesions, Throat pain, Hoarseness, Ear Pain, Running Nose, Epistaxis, Sinus Pain, Toothache, Odynophagia Cardiovascular: DENIES: Chest pain, Palpitations, Syncope, Dyspnea on Exertion , PND, Lower Extremity Edema, Orthopnea, Claudication Gastrointestinal: DENIES: Abdominal pain, Black stools, Bloody stools, Constipation, Diarrhea, Nausea, Vomiting, Difficulty Swallowing, Anorexia Genitourinary: DENIES: Sexual dysfunction, Urinary frequency, Urinary incontinence, Urgency, Hematuria, Dysuria, Nocturia, Penile Discharge, Testicular Pain, Testicular Swelling Musculoskeletal: DENIES: Joint pain, Muscle aches, Stiffness, Joint Swelling, Back pain, Neck pain Integumentary: DENIES: Abnormal pigmentation, Nail changes, Pruritus, Rash Hematologic/lymphatic: DENIES: Bruising, Lymphadenopathy Immunologic/allergic: DENIES: Eczema, Urticaria Neurologic: DENIES: Abnormal gait, Headache, Localized weakness, Paresthesias, Seizures, Speech Problems, Tremor, Poor Balance Psychiatric: DENIES: Anxiety, Confusion, Mood changes, Depression, Hallucinations, Agitation, Suicidal Ideation, Homicidal Ideation, Delusions Substance Abuse History Drugs/Alcohol past 12 months Patient reports occasional use of alcohol and cocaine Past Family Social History Coded Allergies: No Known Allergies (Unverified , 01/02/17) Active Scripts Defibrillator Jacket (Defibrillator Jacket) 1 Ea Device, EA EXTERNAL ONCE, #1 Energy = 150 Joules; VT Threshold = 150 BPM; VF Threshold = 200 BPM Use up to 90 days only Prov:Stephen Ledesma MD 01/07/17 Acetaminophen (Tylenol) 325 Mg Tab, 650 MG PO Q6H Y for pain for 5 Days, #40 TAB 0 Refills Prov:Zenia Franklin 01/03/17 Sennosides-Docusate Sodium (Senna Plus 8.6-50 mg) 8.6 Mg-50 Mg Tab, 2 TAB PO BID for Constipation for 5 Days, #20 TAB Prov:Zenia Franklin 01/03/17 Magnesium Hydroxide (Eq Milk of Magnesia) 400 Mg/5 Ml Shirley, 30 ML PO HS for Constipation for 5 Days, MG Prov:Zenia Franklin 01/03/17 Ziprasidone Inj (Geodon Inj) 20 Mg/Ml (Final Concentration) Inj, 10 MG IM Q12HR Y for severe AGITATION for 3 Days, INJECTION Prov:Zenia Franklin 01/03/17 Quetiapine (Quetiapine) 100 Mg Tab, 100 MG PO Q8HR for behavior for 3 Days, TAB Prov:Zenia Franklin 01/03/17 Haloperidol Inj (Haldol Inj) 5 Mg/Ml Inj, 4 MG IM Q6H Y for moderate agitation for 3 Days, INJECTION Prov:Zenia Franklin 01/03/17 Current Medications Medications (Trade) Dose Ordered Sig/Mason Route Start Time Stop Time Status Last Admin (Prinivil) 2.5 mg DAILY PO 01/09/17 09:00 01/09/17 09:00 (Coreg) 3.125 mg BID PO 01/08/17 21:00 01/09/17 09:00 (Pill Splitter) 1 ea UNSCH PRN OTHER 01/08/17 18:00 (SEROquel) 100 mg Q8HR PO 01/08/17 17:30 01/09/17 05:56 Family History Patient denies family psychiatric history Physical Exam Vital Signs Vital Signs Date Time Temp Pulse Resp B/P (MAP) Pulse Ox O2 Delivery O2 Flow Rate FiO2 01/09/17 05:51 97.3 51 16 112/73 (86) 99 I/O 01/09/17 01/09/17 01/10/17 08:00 16:00 00:00 Intake Total 240 ml Balance 240 ml Lab Results Test 01/08/17 15:20 Troponin I 0.15 NG/ML Mental Status Examination Appearance man, age appearing, good hygiene, [facility], calm and cooperative Speech: Unremarkable Orientation: x3 Memory: Unremarkable Thought Process: Logical, Goal Directed, Linear Thought Content: Unremarkable Attention and Concentration: Good Previous Suicide Attempts: Yes Homicidal Ideation: No Previous Homicide Attempts: No Judgment: WNL Affect: Good Mood: Appropriate Motor Activity: Normal gait Assessment & Plan Problem List: (1) Bipolar disorder ICD Codes: F31.9 - Bipolar disorder, unspecified Assessment & Plan: Patient will continue psychiatric hospitalization for monitoring conversation and longitudinal observation of mood and behavior. Continue Seroquel 300 mg daily. tray worker intervention for psychosocial assessment, collateral information, individual and group therapy, discharge planning. Brief supportive and insight oriented psychotherapy, motivation and psychoeducation provided. Assessment & Plan Estimated LOS: Amish Urban MD Jan 09, 2017 13:24
--- NOTE | 2017-01-09 17:33 | PD.CARD.PN ---
Subjective Subjective Remarks Patient seen earlier today No complaints Objective Medications Current Medications Medications (Trade) Dose Ordered Sig/Mason Route Start Time Stop Time Status Last Admin (Prinivil) 2.5 mg DAILY PO 01/09/17 09:00 01/09/17 09:00 (Coreg) 3.125 mg BID PO 01/08/17 21:00 01/09/17 09:00 (Pill Splitter) 1 ea UNSCH PRN OTHER 01/08/17 18:00 (SEROquel) 100 mg Q8HR PO 01/08/17 17:30 01/09/17 14:00 Vital Signs / I&O Vital Signs Date Time Temp Pulse Resp B/P (MAP) Pulse Ox O2 Delivery O2 Flow Rate FiO2 01/09/17 05:51 97.3 51 16 112/73 (86) 99 01/08/17 18:00 98.2 70 18 119/62 (81) 98 I/O 01/08/17 01/08/17 01/08/17 01/09/17 01/09/17 01/09/17 07:00 15:00 23:00 07:00 15:00 23:00 Intake Total 480 ml 240 ml Balance 480 ml 240 ml Intake Oral 480 ml 240 ml # Voids 2 1 Physical Exam GENERAL: NAD, AAOx3 SKIN: Warm and dry. HEAD: Atraumatic. Normocephalic. EYES: Pupils equal and round. No scleral icterus. No injection or drainage. ENT: No nasal bleeding or discharge. Mucous membranes pink and moist. NECK: Trachea midline. No JVD. CARDIOVASCULAR: Regular rate and rhythm. RESPIRATORY: No accessory muscle use. Clear to auscultation. Breath sounds equal bilaterally. GASTROINTESTINAL: Abdomen soft, non-tender, nondistended. Hepatic and splenic margins not palpable. MUSCULOSKELETAL: Extremities without clubbing, cyanosis, or edema. No obvious deformities. NEUROLOGICAL: Awake and alert. No obvious cranial nerve deficits. Motor grossly within normal limits. Five out of 5 muscle strength in the arms and legs. Normal speech. PSYCHIATRIC: Appropriate mood and affect; insight and judgment normal. Assessment and Plan Problem List: (1) Cardiomyopathy ICD Codes: I42.9 - Cardiomyopathy, unspecified (2) Suicidal ideation ICD Codes: R45.851 - Suicidal ideations Status: Chronic (3) Hanging ICD Codes: T71.164A - Asphyxiation due to hanging, undetermined, initial encounter (4) Troponin level elevated ICD Codes: R74.8 - Abnormal levels of other serum enzymes Assessment and Plan 1) Suicide attempt 2) Cardiomyopathy Resolved, EF 60-65% on echo today 3) Elevated troponin Most likely Type 2 Stress test showing "Small size mild severity reversible defect involving the midportion of the anterior wall ischemia is not excluded" Suppose to have CTA of the coronaries today, but put off due to elevated troponin by radiology [place] to be a Type 2 troponin spill, discussed with information systems technician and left my number for radiologist if concern I feel that CTA of the coronaries is overall better for the patient than a cardiac catheterization at his age Will await CTA coronaries Matthew Vargas DO Jan 09, 2017 17:33
[2017-01-09 17:52] VITALS: BP 125/69; PULSE 78; RESP 18; TEMP 97.3; O2SAT 99
[2017-01-09 18:50] VITALS: TEMP 101.1
[2017-01-09] MEDS: ACETAMINOPHEN 325 MG TAB PO PRN (20:45)
[2017-01-10 05:34] VITALS: BP 114/62; PULSE 101; RESP 16; TEMP 100.3; O2SAT 96
[2017-01-10] MEDS: QUEtiapine FUMARATE 100 MG TAB PO SCH ×2 (05:47→14:00)
[2017-01-10] MEDS: ACETAMINOPHEN 325 MG TAB PO PRN (05:47)
[2017-01-10] MEDS: CARVEDILOL 3.125 MG TAB PO SCH (08:40)
[2017-01-10] MEDS: LISINOPRIL 5 MG TAB PO SCH (08:40)
[2017-01-10] MEDS ORDERED: NITROGLYCERIN 0.4 MG SL 25 TABS/BTL SL ONE ×3 (08:49→08:54)
[2017-01-10 09:20] VITALS: BP 109/65; PULSE 68; RESP 20
[2017-01-10 09:24] VITALS: BP 107/63; PULSE 88; RESP 20
[2017-01-10] MEDS ORDERED: IOHEXOL 350 MG/ML 10 ML VIAL (for RAD DIAG) IVCONTRAST ONE (09:42)
[2017-01-10] MEDS ORDERED: QUET1TAB8 PO (11:36)
--- NOTE | 2017-01-10 11:48 | HHI.DS ---
Psychiatry Discharge Summary Inpatient Psychiatric care?: Yes Advance Directive: No Reason Not Provided: Due to Patient Condition Mental Health AdvanceDirective: No Health Care Proxy: No Admission Admission Date Jan 08, 2017 at 13:58 Admission Diagnosis: (1) Bipolar disorder ICD Code: F31.9 - Bipolar disorder, unspecified Brief History 01/03/2017 The patient is a 26-year-old man, homeless, unemployed, supported by [facility], with psychiatric history bipolar disorder, alcohol use disorder, multiple psychiatric hospitalizations, history of noncompliance with medications, multiple suicidal attempts, his last suicidal attempt was in June 28, 2014, patient jumped of [employer] in [place], what resulted in several fractures a lengthy hospitalization in ICU, this information was confirmed by [facility] psychiatrist in [facility]. At that moment patient was in a mixed manic/depressive status, was is paralyzed and Depakote 750 mg 3 times a day and Seroquel 150 mg at bedtime. He doesn't have any significant medical history, first time in [place], who presents emergency department after reportedly hanging. By EMS report, patient was found by his mom hanging from a ceiling fan with the dog leash. Reportedly family had to cut him down. When he cut down he fell and hit his head on the back of the table. Patient was very combative and agitated in the ER, was sedated and intubated. Consulted to psychiatry to assess manic behavior and suicidal attempt. On psychiatric evaluation today patient is found in his bed, very oppositional, irritable, with elevated mood. He states that he doesn't need to stay with any psychiatrist. He says that he is not here for psychiatric reason. He denies that he tried to commit suicide. She claims that he doesn't remember what happened taking in the last hours. He denies the use of drugs or alcohol. Patient has a rapid speech, at times disorganized and tangential, but redirectable. He also has a very labile mood crying often and yelling at nurses and at me.I contacted Dr. Fregoso in [facility], who told me that the patient has several previous suicidal attempts, some of them very lethal. Apparently patient has poor adherence to psychotropics. He has multiple psychiatric hospitalizations. One of his hospitalizations was due to a suicidal attempt by jumping off a building resulting in multiple traumatic lesions and lengthy hospitalization. 01/08/2017 Patient was seen today for psychiatric reevaluation, patient reports feeling much better, he denies depressive symptoms, patient seems to be very superficial avoidant about his recent suicidal attempt. Patient seems to be minimizing the circumstances and emotions behind suicidal attempt. He says that he became very overwhelmed and frustrated after an argument with his mother. He seems to be regretful about his self-harming behavior. At this moment he denies suicidal and homicidal ideation, he denies visual and auditory hallucinations. Patient is rory for safety in the medical floor. Oriented 3, compliant with medications, no agitation or aggressive behavior reported. 01/09/2017 the patient is a man, 26 years old, employed, domicile with mother, with psychiatric history of dementia and above, today on psychiatric reevaluation patient is found calm, cooperative, he stated that he feels ready to be discharged. Patient says that he has to go to work, he doesn't want to lose his job. Patient says that as long as he doesn't have an argument with his mother and she doesn't make derogatory comments begin seeing his verified. Patient says that his avoid confrontations, and he is aware how sensitive he could be to frustration and overwhelmeness. Patient reports improved mood, he denies anhedonia, he denies hopelessness, he denies hopelessness, he denies suicidal and homicidal ideation, he denies visual and auditory hallucinations. No paranoia, delusions, no krista, ideas of reference, no agitation or aggressive behavior reported or observed. He is oriented 3, no protrusion of consciousness, no attention deficit. Plan with his medications, nose and medical side effects. Tobacco Use In Past 30 Days: No Tobacco Past 30 Days Alcohol Use: 2-4 Times Per Month Hospital Course Patient was admitted in the psychiatric unit after attempting to commit suicide by hanging himself. At the beginning of hospitalization patient was irritable, verbally hostile, some pressure speech. Patient was seen by medicine due to congestive heart failure, hypoxia. He was finally medically clear. Psychiatric and psychosocial assessment were performed. Safety measures taken. Was started and Seroquel 200 mg 3 times a day for mood stabilization. He was also started in group and individual counseling. Patient showed appropriate and positive response to psychotropic and psychotherapy regimen. No agitation, aggressive behavior, hostility reported in the unit. With further evaluation, and collateral information, we confirmed that this suicidal attempt, as others in the past, are most probably related with character structure and also potential use of psychoactive substances, rather than related with a major mood disorder. However, at the moment of discharge patient is a baseline, he denies suicidal and homicidal ideation, he denies visual and auditory hallucinations. Results Blood Pressure 107 / 63 Vital Signs Date Time Temp Pulse Resp B/P (MAP) Pulse Ox O2 Delivery O2 Flow Rate FiO2 01/10/17 09:24 88 20 107/63 (78) 01/10/17 05:34 100.3 96 Laboratory Tests Test 01/08/17 15:20 Troponin I 0.15 NG/ML (0.02-0.05) Summary of Major Lab Results Labs reviewed Summary of Procedures No psychiatric procedure of performed. Pending results at discharge: No Medications # of Antipsychotic meds at D/C: 1 Approp Antipsych med options 1 - Minimum of three failed multiple trials of monotherapy. 2 - Documented plan to taper to monotherapy due to previous use of multiple meds OR cross-taper in progress at D/C. 3 - Documentation of augmentation of Clozapine. 4 - Justification other than those listed in allowable values 1-3, document here : Discharge Discharge Date: Jan 10, 2017 Discharge Diagnosis: (1) Adjustment disorder with mixed disturbance of emotions and conduct ICD Code: F43.25 - Adjustment disorder with mixed disturbance of emotions and conduct Mental Status Exam at Disch man, age appearing, good hygiene, [facility], his calm, cooperative. His mood is "fine", affect is euthymic. Process is logical, coherent and relevant. Speech is appropriate. The content is devoid of suicidal ideation, homicidal ideation, visual and auditory hallucinations. InSight, impulse control, judgment are fair. Cognition is intact. Pt Condition on Discharge: Stable Discharge Disposition: Discharge Home Discharge Instructions Diet Instructions: Heart Healthy Diet Activities you can perform: Regular-No Restrictions Scheduled Appointment: Gomez Walker Appointment Date: Jan 11, 2017 Appointment Time: 07:30am Discharge Time > 30 minutes Discharge/Advance Care Plan Health Problems: (1) Bipolar disorder Goals to promote your health * To prevent worsening of your condition and complications * To maintain your health at the optimal level Directions to meet your goals Take your medications as prescribed Follow your dietary instruction Follow activity as directed Keep your appointments as scheduled Take your immunizations and boosters as scheduled If your symptoms worsen call your PCP, if no PCP go to Urgent Care Center or Emergency Room For 05/11 questions related to your inpatient stay or results of tests pending at discharge, please contact Dr. Amish Simental at Smoking is Dangerous to Your Health. Avoid second hand smoking Amish Simental MD Jan 10, 2017 11:48
--- NOTE | 2017-01-10 12:46 | RADRPT ---
EXAM DATE/TIME: 01/10/2017 08:50 [place] COMPARISON: CT THORAX W CONTRAST, January 02, 2017, 16:48. INDICATIONS : Cardiomyopathy, abnormal stress test. IV CONTRAST: 95 cc Omnipaque 350 (iohexol) IV RADIATION DOSE: 4.29 CTDIvol (mGy) MEDICAL HISTORY : Cardiovascular disease. SURGICAL HISTORY : None. ENCOUNTER: Initial ACUITY: 1 day PAIN SCALE: 0/10 LOCATION: chest TECHNIQUE: Volumetric scanning was obtained through the heart. Images were acquired on a multislice multiple ro w detector helical scanner timed for acquisition during peak arterial contrast. Images were reconstr ucted using a retrospective gating algorithm including single sector and multi-sector algorithms at m ultiple phases of the cardiac cycle. Images were interpreted using a combination of 2D and 3D visual ization modes including curved planar reformation, thin slab maximum intensity projection and volume rendering. Using automated exposure control and adjustment of the mA and/or kV according to patient size, radiation dose was kept as low as reasonably achievable to obtain optimal diagnostic quality im ages. DICOM format image data is available electronically for review and comparison. FINDINGS: VESSEL ANALYSIS: DOMINANCE: The coronary system is right dominant. LEFT MAIN: Normal vessel without calcification or stenosis. LAD: Normal vessel without calcification or stenosis. CIRCUMFLEX: Normal vessel without calcification or stenosis. RCA: Normal vessel without calcification or stenosis. OTHER: The visualized pulmonary parenchyma is clear. The left ventricle is well visualized. There is signifi cant circumferential hypertrophy of the left ventricular wall. The left ventricular wall measures vaibhav roximately 2.1 cm along the septum and 2.2 cm along the lateral wall. Examination is concerning for h ypertrophic cardiomyopathy. CONCLUSION: 1. The coronary circulation is clean. 2. Grossly abnormal thickness of the left ventricular wall suggesting severe hypertrophic cardiomyopa thy. The ventricular wall average is greater than 2 cm in thickness. Eduar Nicholas MD on January 10, 2017 at 10:56 Board Certified Radiologist. This report was verified electronically.
[2017-01-10] MEDS ORDERED: LISI-519 PO (14:23)
[2017-01-10] MEDS ORDERED: CARV3.125 PO (14:23)
--- NOTE | 2017-01-10 17:25 | PD.CARD.PN ---
Subjective Subjective Remarks Patient seen earlier No complaints, wait for CTA results Objective Medications Current Medications Lisinopril (Prinivil) 2.5 mg DAILY PO Last administered on 01/10/17 08:40; Start 01/09/17 at 09:00; Stop 01/10/17 at 17:08; Status DC Carvedilol (Coreg) 3.125 mg BID PO Last administered on 01/10/17 08:40; Start 01/08/17 at 21:00; Stop 01/10/17 at 17:08; Status DC Miscellaneous (Pill Splitter) 1 ea UNSCH PRN OTHER SEE LABEL COMMENTS; Start at 18:00; Stop 01/10/17 at 17:08; Status DC Quetiapine Fumarate (SEROquel) 100 mg Q8HR PO Last administered on 01/10/17 14 :00; Start 01/08/17 at 17:30; Stop 01/10/17 at 17:08; Status DC Acetaminophen (Tylenol) 650 mg Q6H PRN PO Fever, pain 1-2 Last administered on 01/10/17 05:47; Start 01/09/17 at 19:45; Stop 01/10/17 at 17:08; Status DC Nitroglycerin (Nitrostat Sl (Adm Override)) 0.4 mg STK-MED ONCE SL ; Start 01/10 at 08:49; Stop 01/10/17 at 08:50; Status DC Nitroglycerin (Nitrostat Sl (Adm Override)) 0.4 mg STK-MED ONCE SL ; Start 01/10 at 08:50; Stop 01/10/17 at 08:51; Status DC Nitroglycerin (Nitrostat Sl) 0.4 mg STK-MED ONCE SL Last administered on 08:48; Start 01/10/17 at 08:54; Stop 01/10/17 at 08:55; Status DC Iohexol (Omnipaque 350 Inj) 95 ml STK-MED ONCE IVCONTRAST Last administered on 01/10/17 09:42; Start 01/10/17 at 09:42; Stop 01/10/17 at 09:43; Status DC Vital Signs / I&O Vital Signs Date Time Temp Pulse Resp B/P (MAP) Pulse Ox O2 Delivery O2 Flow Rate FiO2 01/10/17 09:24 88 20 107/63 (78) 01/10/17 09:20 68 20 109/65 (80) 01/10/17 05:34 100.3 101 16 114/62 (79) 96 01/09/17 18:50 101.1 01/09/17 17:52 97.3 78 18 125/69 (87) 99 I/O 01/09/17 01/09/17 01/09/17 01/10/17 01/10/17 01/10/17 07:00 15:00 23:00 07:00 15:00 23:00 Intake Total 240 ml 840 ml 120 ml 1440 ml Balance 240 ml 840 ml 120 ml 1440 ml Intake Oral 240 ml 840 ml 120 ml 1440 ml # Voids 1 3 1 Physical Exam GENERAL: NAD, AAOx3 SKIN: Warm and dry. HEAD: Atraumatic. Normocephalic. EYES: Pupils equal and round. No scleral icterus. No injection or drainage. ENT: No nasal bleeding or discharge. Mucous membranes pink and moist. NECK: Trachea midline. No JVD. CARDIOVASCULAR: Regular rate and rhythm. RESPIRATORY: No accessory muscle use. Clear to auscultation. Breath sounds equal bilaterally. GASTROINTESTINAL: Abdomen soft, non-tender, nondistended. Hepatic and splenic margins not palpable. MUSCULOSKELETAL: Extremities without clubbing, cyanosis, or edema. No obvious deformities. NEUROLOGICAL: Awake and alert. No obvious cranial nerve deficits. Motor grossly within normal limits. Five out of 5 muscle strength in the arms and legs. Normal speech. PSYCHIATRIC: Appropriate mood and affect; insight and judgment normal. Assessment and Plan Problem List: (1) Cardiomyopathy ICD Codes: I42.9 - Cardiomyopathy, unspecified (2) Suicidal ideation ICD Codes: R45.851 - Suicidal ideations Status: Chronic (3) Hanging ICD Codes: T71.164A - Asphyxiation due to hanging, undetermined, initial encounter (4) Troponin level elevated ICD Codes: R74.8 - Abnormal levels of other serum enzymes Assessment and Plan 1) Suicide attempt 2) Cardiomyopathy Resolved, EF 60-65% on echo 3) Elevated troponin Most likely Type 2 Stress test showing "Small size mild severity reversible defect involving the midportion of the anterior wall ischemia is not excluded" CTA showing no significant CAD, can be discharged from a cardiovascular standpoint CTA showing possible LV hypertrophy, but 2 echoes showing wall thickness of ~0.9cm (normal) Possible due to the CT cuts? Overall would be BP control on current meds and follow up outpatient, no further inpatient work up needed Matthew Vargas DO Jan 10, 2017 17:25
== END 2017-01-10 16:30 | disposition home or self-care (01) | DRG 885 ==
LOC: H4EA 13:58
PROVIDERS: ADMIT Psychiatry & Neurology Psychiatry; ATTEND Psychiatry & Neurology Psychiatry
DX: F31.9 Bipolar disorder, unspecified (principal); I42.9 Cardiomyopathy, unspecified; F43.25 Adjustment disorder with mixed disturbance of emotions and conduct; Z91.5 Personal history of self-harm
CPT/HCPCS: 75574; 84484; 93308; Q9967